=== PATIENT | male | born 1970 | race Caucasian/White ===

== ENCOUNTER 2020-04-14 11:00 | Outpatient (CLI) | payer OTHER, SELFPAY ==
[2020-04-14 11:13] LABS: Basophils Absolute Auto 0.04 K/mm3 (0.00-0.10); Basophils Percent Auto 0.4 % (0.0-1.0); Eosinophils Absolute Auto 0.18 K/mm3 (0.02-0.50); Eosinophils Percent Auto 1.7 % (1.0-6.0); Hematocrit 45.6 % (40.0-54.0); Hemoglobin 14.4 g/dL (14.0-18.0); Immature Granulocyte Absolute 0.04 K/mm3 (0.00-0.00); Immature Granulocyte Percent A 0.4 % (0.0-0.0); Lymphocytes Absolute Auto 1.91 K/mm3 (1.10-4.50); Lymphocytes Percent Auto 18.3 % (18.0-42.0); Mean Corpuscular HGB Conc 31.6 g/dL (32.0-36.0); Mean Corpuscular Hemoglobin 26.6 pg (27.0-31.0); Mean Corpuscular Volume 84.1 fL (78.0-102.0); Mean Platelet Volume 9.3 fl (8.7-11.0); Monocytes Absolute Auto 0.97 K/mm3 (0.10-0.90); Monocytes Percent Auto 9.3 % (2.0-11.0); Neutrophils Absolute Auto 7.3 K/mm3 (1.7-7.2); Neutrophils Percent Auto 69.9 % (50.0-70.0); Platelet Count Result 378 K/mm3 (150-420); Red Blood Count 5.42 M/mm3 (4.70-6.10); Red Cell Distribution Width 13.7 % (11.6-14.4); White Blood Count 10.5 K/mm3 (4.8-10.8)
[2020-04-14 12:28] LABS: Alanine Aminotransferase 8 U/L (16-63); Albumin Level 3.5 g/dL (3.4-5.0); Alkaline Phosphatase 100 U/L (46-116); Anion Gap 9 mmol/L (8-16); Aspartate Amino Transferase 19 U/L (15-37); Bilirubin,Total 0.6 mg/dL (0.00-1.00); Blood Urea Nitrogen 17 mg/dL (7-18); Calcium 9.2 mg/dL (8.5-10.1); Carbon Dioxide 28 mmol/L (21-32); Chloride 101 mmol/L (98-108); Estimated Glomerular Filt Rate 57; Free T4 Free Thyroxine 1.21 ng/dL (0.76-1.46); Glucose 100 mg/dL (70-99); Osmolality Calculated 287 mOsm/kg (285-295); Potassium 4.4 mmol/L (3.5-5.1); Sodium 138 mmol/L (136-145); Total Protein 7.8 g/dL (6.4-8.2); Vitamin B12 315 pg/mL (193-986)
[2020-04-14 12:29] LABS: Folic Acid > 20.0 ng/mL (8.6->20)
[2020-04-17 20:13] LABS: Vitamin D 25 Hydroxy 39 ng/mL (30-100)
== END 2020-04-14 11:01 | disposition home or self-care (01) ==
LOC: CHSLAB 11:01
PROVIDERS: PCP Nurse Practitioner Family; Visit Provider Psychiatry & Neurology Neurology
DX: R25.1 Tremor, unspecified (principal)
CPT/HCPCS: 36415; 80053; 82306; 82607; 82746; 84439; 85025; 86038

== ENCOUNTER 2020-11-27 10:55 | Outpatient (CLI) | payer OTHER, SELFPAY ==
--- NOTE | 2020-11-28 10:34 | WPDNEUROLOGY ---
Neurology EEG Report General Information Date of Study: 11/27/20 TEST eeg DIAGNOSIS memory loss CONDITION OF RECORDING awake drowsy and sleep EEG NUMBER [id number] CLINICAL HISTORY patient reported his family says he is having memory issues for about a year or so. Patient has been diagnosed with Parkinson's disease as well. EEG DESCRIPTION basic resting occipital frequency consists of large amount of well-organized low to medium voltage 9 to 11 hertz per second alpha admixed with low-voltage 15 to 18 hertz per second beta. During drowsiness low-voltage beta activity seen diffusely. Bilateral symmetrical sleep activity seen during sleep. Non paroxysmal. Nonfocal. Nonlateralizing. IMPRESSION Normal record
== END 2020-11-27 10:56 | disposition home or self-care (01) ==
PROVIDERS: PCP Nurse Practitioner Family; Visit Provider Psychiatry & Neurology Neurology
DX: R41.3 Other amnesia (principal)
CPT/HCPCS: 95816

== ENCOUNTER → 2020-11-27 12:34 | Outpatient (CLI) | payer OTHER, SELFPAY ==
--- NOTE | ~2020-11-27 | MR_ITS ---
EXAMINATION: MR brain/brain stem wo con DATE: 11/27/2020 13:13 INDICATION: Memory loss. TECHNIQUE: Magnetic resonance imaging (MRI) of the brain and brainstem was performed without intraven ous contrast. Sequences included sagittal and axial T1-weighted FSE, axial diffusion-weighted FS EPI, axial T2*-weighted GRE, axial T2-weighted FLAIR Propeller, and axial T2-weighted Propeller. Apparent diffusion coefficient (ADC) maps were created. COMPARISON: None. FINDINGS: In the right frontal lobe, there is a focal area of cortical thickening and surface lobulat ion, consistent with polymicrogyria. There is a second smaller area of polymicrogyria in left frontal lobe. There is a third area of polymicrogyria in left parietal occipital region. There is no acute i schemic infarct or intracranial hemorrhage. The ventricles are normal in size. The orbits are normal. There is mild mucosal thickening in the ethmoid sinuses. The mastoid air cells are normal. IMPRESSION: 1. 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 Reviewed, dictated and finalized at location A.
== END ==
PROVIDERS: Visit Provider Psychiatry & Neurology Neurology
DX: R41.3 Other amnesia (principal)
CPT/HCPCS: 70551

== ENCOUNTER 2022-01-03 08:23 | Outpatient (CLI) | payer OTHER, SELFPAY ==
[2022-01-03 08:33] LABS: Basophils Absolute Auto 0.06 K/mm3 (0.00-0.10); Basophils Percent Auto 0.6 % (0.0-1.0); Eosinophils Absolute Auto 0.22 K/mm3 (0.02-0.50); Eosinophils Percent Auto 2.1 % (1.0-6.0); Hematocrit 42.2 % (40.0-54.0); Hemoglobin 12.9 g/dL (14.0-18.0); Immature Granulocyte Absolute 0.05 K/mm3 (0.00-0.00); Immature Granulocyte Percent A 0.5 % (0.0-0.0); Lymphocytes Absolute Auto 1.93 K/mm3 (1.10-4.50); Lymphocytes Percent Auto 18.8 % (18.0-42.0); Mean Corpuscular HGB Conc 30.6 g/dL (32.0-36.0); Mean Corpuscular Volume 85.1 fL (78.0-102.0); Mean Platelet Volume 9.1 fl (8.7-11.0); Monocytes Absolute Auto 0.96 K/mm3 (0.10-0.90); Monocytes Percent Auto 9.4 % (2.0-11.0); Neutrophils Percent Auto 68.6 % (50.0-70.0); Platelet Count Result 409 K/mm3 (150-420); Red Blood Count 4.96 M/mm3 (4.70-6.10); Red Cell Distribution Width 14.1 % (11.6-14.4); White Blood Count 10.3 K/mm3 (4.8-10.8)
[2022-01-03 09:22] LABS: Alanine Aminotransferase 16 U/L (16-63); Albumin Level 3.1 g/dL (3.4-5.0); Alkaline Phosphatase 111 U/L (46-116); Anion Gap 7 mmol/L (8-16); Aspartate Amino Transferase 15 U/L (15-37); Bilirubin,Total 0.3 mg/dL (0.00-1.00); Blood Urea Nitrogen 19 mg/dL (7-18); Calcium 9.1 mg/dL (8.5-10.1); Carbon Dioxide 29 mmol/L (21-32); Chloride 101 mmol/L (98-108); Estimated Glomerular Filt Rate > 60; Free T4 Free Thyroxine 1.03 ng/dL (0.76-1.46); Glucose 107 mg/dL (70-99); Osmolality Calculated 286 mOsm/kg (285-295); Potassium 4.3 mmol/L (3.5-5.1); Sodium 137 mmol/L (136-145); Total Protein 7.8 g/dL (6.4-8.2); Vitamin B12 388 pg/mL (193-986)
[2022-01-06 07:42] LABS: Red Blood Cell Folate 721 ng/mL RBC (>280)
== END 2022-01-03 08:24 | disposition home or self-care (01) ==
LOC: CHSLAB 08:25
PROVIDERS: PCP Family Medicine; Visit Provider Psychiatry & Neurology Neurology
DX: G20 Parkinson's disease (principal)
CPT/HCPCS: 36415; 80053; 82607; 82747; 84439; 85025

== ENCOUNTER 2022-02-12 10:18 | Outpatient (CLI) | payer OTHER, SELFPAY ==
--- NOTE | 2022-02-12 11:15 | NEURO_ITS ---
Impression: # Complains of muscle spasms and cramps. # Subtle right Carpal Tunnel Syndrome. # Right ulnar neuropathy across the elbow. # Needle/EMG exam revealed no fib, myotonia or fasciculation but tremulous with decreased motor unit potentials. Nerve Conduction Studies Anti Sensory Summary Table Stim Site NR Peak (ms) P-T Amp (?V) Site1 Site2 Delta-P (ms) Dist (cm) Armando (m/s) Left Median Anti Sensory (2-3nd Digit) Wrist 3.6 66.7 Wrist 2-3nd Digit 3.6 14.0 39 Wrist 3.6 42.5 Wrist 2-3nd Digit 3.6 14.0 39 Right Median Anti Sensory (2-3nd Digit) Wrist 3.8 22.5 Wrist 2-3nd Digit 3.8 14.0 37 Wrist 3.5 17.0 Wrist 2-3nd Digit 3.8 14.0 37 Left Radial Anti Sensory (Base 1st Digit) Wrist 2.5 6.6 Wrist Base 1st Digit 2.5 0.0 Right Radial Anti Sensory (Base 1st Digit) Wrist 2.8 11.8 Wrist Base 1st Digit 2.8 0.0 Left Sup Fibular Anti Sensory (Ant Lat Mall) 14 cm 3.9 9.8 14 cm Ant Lat Mall 3.9 16.0 41 Right Sup Fibular Anti Sensory (Ant Lat Mall) 14 cm 3.4 10.3 14 cm Ant Lat Mall 3.4 16.0 47 Left Sural Anti Sensory (Lat Mall) Calf 3.7 9.3 Calf Lat Mall 3.7 16.0 43 Right Sural Anti Sensory (Lat Mall) Calf 3.4 41.6 Calf Lat Mall 3.4 16.0 47 Left Ulnar Anti Sensory (5th Digit) Wrist 3.6 47.7 Wrist 5th Digit 3.6 14.0 39 Right Ulnar Anti Sensory (5th Digit) Wrist 2.9 36.9 Wrist 5th Digit 2.9 14.0 48 Motor Summary Table Stim Site NR Onset (ms) O-P Amp (mV) Site1 Site2 Delta-0 (ms) Dist (cm) Armando (m/s) Left Median Motor (Abd Poll Brev) Wrist 3.9 4.6 Elbow Wrist 5.5 30.0 55 Elbow 9.4 4.2 Right Median Motor (Abd Poll Brev) Wrist 4.2 3.8 Elbow Wrist 5.0 28.0 56 Elbow 9.2 3.9 Left Peroneal Motor (Vastus Med) Ankle 4.1 2.2 Popit Ankle 9.3 42.0 45 Popit 13.4 1.9 Right Peroneal Motor (Vastus Med) Ankle 4.5 2.3 Popit Ankle 8.2 36.0 44 Popit 12.7 1.8 Left Tibial Motor (Abd Iniguez Brev) Ankle 5.2 1.7 Knee Ankle 9.7 43.0 44 Knee 14.9 0.8 Right Tibial Motor (Abd Iniguez Brev) Ankle 5.2 1.6 Knee Ankle 9.6 42.0 44 Knee 14.8 0.4 Left Ulnar Motor (Abd Dig Minimi) Wrist 2.8 5.6 A Elbow Wrist 5.4 29.0 54 A Elbow 8.2 3.7 Right Ulnar Motor (Abd Dig Minimi) Wrist 3.0 8.5 A Elbow Wrist 6.0 27.0 45 A Elbow 9.0 7.2 B Elbow Wrist 3.6 20.0 56 B Elbow 6.6 8.1 F Wave Studies NR F-Lat (ms) L-R F-Lat (ms) Left Median (Mrkrs) (Abd Poll Brev) 31.16 0.25 Right Median (Mrkrs) (Abd Poll Brev) 30.90 0.25 Left Peroneal (Mrkrs) (EDB) 59.29 0.76 Right Peroneal (Mrkrs) (EDB) 58.53 0.76 Left Tibial (Mrkrs) (Abd Hallucis) 59.79 0.15 Right Tibial (Mrkrs) (Abd Hallucis) 59.94 0.15 Left Ulnar (Mrkrs) (Abd Dig Min) 30.75 0.90 Right Ulnar (Mrkrs) (Abd Dig Min) 29.85 0.90 EMG Side Muscle Nerve Root Ins Act Fibs Amp Dur Recrt Comment Right 1stDorInt Ulnar C8-T1 Nml Nml Nml Nml Reduced Right Ext Indicis Radial (Post Int) C7-8 Nml Nml Nml Nml Reduced Right Ext Digitorum Radial (Post Int) C7-8 Nml Nml Nml Nml Reduced Right BrachioRad Radial C5-6 Nml Nml Nml Nml Reduced Right PronatorTeres Median C6-7 Nml Nml Nml Nml Reduced Right Abd Poll Brev
== END 2022-02-12 10:19 | disposition home or self-care (01) ==
PROVIDERS: PCP Family Medicine; Visit Provider Psychiatry & Neurology Neurology
DX: R25.2 Cramp and spasm (principal); G56.01 Carpal tunnel syndrome, right upper limb; G56.21 Lesion of ulnar nerve, right upper limb
CPT/HCPCS: 95886; 95913

== ENCOUNTER 2022-10-25 09:13 | Outpatient (CLI) | payer OTHER, SELFPAY ==
--- NOTE | 2022-10-25 09:15 | ECG_ITS ---
Measurements Intervals [place] Rate: 71 P: 56 AK: 162 QRS: 55 QRSD: 91 T: 40 QT: 378 QTc: 411 Interpretive Statements SINUS RHYTHM WITHIN NORMAL LIMITS NO PREVIOUS ECG AVAILABLE FOR COMPARISON Electronically Signed On 10-25-2022 15:45:51 [employer] RO[employer] by Mannie Rolon M.D.
[2022-10-25 09:37] LABS: Basophils Absolute Auto 0.06 K/mm3 (0.00-0.10); Basophils Percent Auto 0.6 % (0.0-1.0); Eosinophils Absolute Auto 0.19 K/mm3 (0.02-0.50); Hemoglobin 13.1 g/dL (14.0-18.0); Immature Granulocyte Absolute 0.05 K/mm3 (0.00-0.00); Immature Granulocyte Percent A 0.5 % (0.0-0.0); Lymphocytes Percent Auto 20.2 % (18.0-42.0); Mean Corpuscular Hemoglobin 27.2 pg (27.0-31.0); Mean Corpuscular Volume 85.2 fL (78.0-102.0); Mean Platelet Volume 9.2 fl (8.7-11.0); Monocytes Absolute Auto 1.04 K/mm3 (0.10-0.90); Monocytes Percent Auto 11.1 % (2.0-11.0); Neutrophils Absolute Auto 6.2 K/mm3 (1.7-7.2); Neutrophils Percent Auto 65.6 % (50.0-70.0); Platelet Count Result 404 K/mm3 (150-420); Red Blood Count 4.81 M/mm3 (4.70-6.10); Red Cell Distribution Width 13.2 % (11.6-14.4); White Blood Count 9.4 K/mm3 (4.8-10.8)
[2022-10-25 10:20] LABS: Alanine Aminotransferase 8 U/L (16-63); Albumin Level 3.2 g/dL (3.4-5.0); Alkaline Phosphatase 86 U/L (46-116); Anion Gap 5 mmol/L (8-16); Aspartate Amino Transferase 16 U/L (15-37); Bilirubin,Total 0.3 mg/dL (0.00-1.00); Blood Urea Nitrogen 17 mg/dL (7-18); Calcium 9.1 mg/dL (8.5-10.1); Carbon Dioxide 31 mmol/L (21-32); Chloride 102 mmol/L (98-108); Cholesterol 138 mg/dL (0-200); Estimated Glomerular Filt Rate 59; Glucose 100 mg/dL (70-99); HDL Direct 56 mg/dL (40-60); LDL Cholesterol Calculated 76 mg/dL (<130); Osmolality Calculated 287 mOsm/kg (285-295); Sodium 138 mmol/L (136-145); Total Protein 7.6 g/dL (6.4-8.2); Triglycerides 29 mg/dL (0-150)
[2022-10-25 10:22] LABS: Troponin I 7.8 ng/L (0.00-60.4)
== END 2022-10-25 09:14 | disposition home or self-care (01) ==
PROVIDERS: PCP Nurse Practitioner Family; Visit Provider Nurse Practitioner Family
DX: I10 Essential (primary) hypertension (principal)
CPT/HCPCS: 36415; 80053; 80061; 84484; 85025; 93005

== ENCOUNTER 2022-10-31 09:19 | Outpatient (CLI) | payer OTHER, SELFPAY ==
--- NOTE | ~2022-10-31 | MR_ITS ---
EXAMINATION: MR brain/brain stem wo/w con DATE: 10/31/2022 10:24 INDICATION: Stroke. TECHNIQUE: Magnetic resonance imaging (MRI) of the brain and brainstem was performed without and with 18 mL MultiHance intravenous contrast. COMPARISON: Brain MRI 11/27/2020 FINDINGS: Again seen are 3 areas of cortical thickening involving the frontal lobes and left parietal lobe, consistent with polymicrogyria. There is no intracranial hemorrhage, acute infarction, or abno rmal intracranial mass lesion. The ventricles are normal in size. There is mild mucosal thickening in the ethmoid sinuses. The mastoid air cells are normal. The orbits are normal. IMPRESSION: 1. Multiple areas of polymicrogyria again seen in the brain. Reviewed, dictated and finalized at location A. 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
== END 2022-10-31 09:20 | disposition home or self-care (01) ==
LOC: CHSIMG 09:20
PROVIDERS: PCP Nurse Practitioner Family; Visit Provider Nurse Practitioner Family
DX: I10 Essential (primary) hypertension (principal); Q04.3 Other reduction deformities of brain
CPT/HCPCS: 70553; A9577

== ENCOUNTER 2023-05-06 13:49 | Outpatient (CLI) | payer OTHER, SELFPAY ==
--- NOTE | ~2023-05-06 | US_ITS ---
EXAMINATION: US soft tissue groin RT DATE: 05/06/2023 14:20 INDICATION: Right lower quadrant abdominal pain. TECHNIQUE: Multiple grayscale and Doppler ultrasound images of the right groin were obtained. COMPARISON: None FINDINGS: There is a right inguinal hernia containing bowel. IMPRESSION: 1. Right inguinal hernia containing bowel. Reviewed, dictated and finalized at location A.
== END 2023-05-06 13:50 | disposition home or self-care (01) ==
PROVIDERS: PCP Nurse Practitioner Family; Visit Provider Nurse Practitioner Family
DX: K40.90 Unilateral inguinal hernia, without obstruction or gangrene, not specified as recurrent (principal); R29.898 Other symptoms and signs involving the musculoskeletal system
CPT/HCPCS: 76882

== ENCOUNTER 2023-07-02 01:28 | Day surgery (SDC) | payer OTHER, SELFPAY ==
[2023-06-25 14:53] VITALS: BMI 27.6
--- NOTE | 2023-06-25 14:59 | PC.NURSE ---
Report to the Outpatient Waiting Room, entrance under the green pavilion located off [address], at time 0930 on date 07/02/23. Planned Procedure Time: 1130. Time changes happen often and if your time is changed the preop area will call you the afternoon before. - You and your visitor will be asked to self-screen and do not enter if you have any COVID symptoms. - A mask is optional within the hospital at this time. Patients may have clear liquids (water, carbonated beverages, clear teas, apple juice) until 3 hours prior to surgery with a maximum of 20 ounces. - No food from midnight until time of surgery Take the following medications with a SIP of water the morning of surgery: CARBIDOPA-LEVODOPA, CITALOPRAM, METOPROLOL DO NOT STOP ANY OF YOUR OTHER PRESCRIPTION MEDICATIONS PRIOR TO SURGERY ?EXCEPT THE FOLLOWING Medications to discontinue per physician: VITAMINS/SUPPLEMENTS Date to take last dose: 06/28/23 Please no make-up, nail arabic, hairspray, perfume, deodorant, or body powder the day of surgery. No jewelry (including any body piercings) or valuables the day of surgery, leave them at home. Please take a shower or bath the night before, or the morning of, surgery with an antibacterial soap. Wear comfortable, loose fitting clothing. - Jewelry must be removed prior to entering the operating room. Rings and piercings that are not removed may be cut off. - The hospital will not accept responsibility for valuables. - Please leave all valuables, including medications, at home the day of surgery. If you are going home after surgery, a licensed hearse driver must drive you home. - NO public transportation without another adult if you receive anesthesia. - We recommend that an adult stay with you for 24 hours following discharge. - We also recommend that you do not drive, make important decision, drink alcoholic beverages, or take any drugs that were not prescribed by your health care provider for at least 24 hours after your discharge time. Follow any additional instructions given to you from your surgeon. If you or anyone in your household have experienced Covid symptoms in the past week, please notify your surgeon or the nurse liaison at the phone number below for possible testing. Telephone instructions given to PT & SPOUSE and asked if any additional questions and then verbalized understanding. Patient advised to call surgeon office or pre surgery nurse liaison [phone] if any additional questions.
[2023-07-02] VITALS (21 sets, daily range): BP systolic 96–130; BP diastolic 55–96; PULSE 52–86; RESP 12–20; TEMP 36.4–36.9; O2SAT 95–100
--- NOTE | 2023-07-02 10:43 | PM.IMHP ---
H&P: HPI History of Present Illness Date/Time: 07/02/23 10:43 Chief Complaint: Right inguinal hernia Narrative: This is a 53-year-old man who presents for laparoscopic right inguinal hernia repair. He reports no changes since last seen in the office. Review of Systems Review of Systems: All systems reviewed & are unremarkable except as noted in HPI and below Constitutional: Constitutional: Denies chills, Denies fever(s), Denies headache(s) and Denies weight loss Eyes: Eyes: Denies change in vision ENT: Denies dizziness, Denies headache(s), Denies neck mass and Denies throat swelling Cardiovascular: Cardiovascular: Denies chest pain, Denies lightheadedness and Denies dyspnea Respiratory: Respiratory: Denies cough, Denies dyspnea and Denies wheezing Gastrointestinal: Gastrointestinal: Denies abdominal pain, Denies change in bowel habits, Denies nausea and Denies vomiting Genitourinary: Genitourinary: Denies hematuria and Denies dysuria Musculoskeletal: Musculoskeletal: Reports as per HPI Integumentary/Breasts: Skin/Breast: Reports as per HPI Neurologic: Denies dizziness and Denies headache(s) Allergic/Immunologic: Allergic/Immunologic: Denies throat swelling and Denies wheezing [facility] Past Medical History Medical History GI bleed Hypertension Parkinson's Disease Family History Family History Father Family history of type 2 diabetes mellitus Other Inguinal hernia Social History Social History Smoking status: Never smoker Alcohol intake: current Alcohol use details: RARE Substance use: never Substance use type: does not use Living arrangements: with family Occupation/Education: occupation 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 Spiritual care concerns: No Meds Home Medications and Allergies Home Medications Medication Instructions Recorded Confirmed Type magnesium oxide 400 mg PO DAILY 07/01/19 06/25/23 History multivitamin 1 tablet PO DAILY 07/01/19 06/25/23 History diclofenac sodium 50 mg 50 mg PO TID PRN pain #60 tabs 09/20/20 06/25/23 Rx tablet,delayed release lisinopril 20 mg tablet See Rx Instructions .Route 04/02/23 06/25/23 Rx .COMPLEX #90 tabs metoprolol succinate 50 mg See Rx Instructions .Route 04/18/23 06/25/23 Rx tablet,extended release 24 hr .COMPLEX #90 tabs carbidopa 25 mg-levodopa 250 mg See Rx Instructions .Route 04/21/23 06/25/23 Rx tablet .COMPLEX #270 tabs citalopram 10 mg tablet See Rx Instructions .Route 04/21/23 06/25/23 Rx .COMPLEX #90 tabs diphenhydramine HCl 25 mg tablet 25 mg PO BID PRN Allergy Symptoms 06/25/23 06/25/23 History Allergies Allergy/AdvReac Type Severity Reaction Status Date / Time No Known Allergies Allergy Verified 06/25/23 14:50 Exam Const: General: no acute distress and alert Orientation/consciousness: patient oriented x3 HENMT: Head: normocephalic and atraumatic Ears: hearing grossly normal bilaterally Face/Nose/Sinus: Normal nares present Mouth: Yes Normal oral and palatal mucosa present Eyes: Periorbital: periorbital findings normal Sclera: sclerae normal EOM: EOMs intact bilaterally Neck: Neck: normal visual inspection, no lymphadenopathy and trachea midline Chest: Chest palpation & inspection: normal inspection of the chest Resp: Effort & Inspection: normal respiratory effort Auscultation: clear to auscultation bilaterally Cardio: Jugular venous distension: no JVD Rate: regular rate Rhythm: regular rhythm Heart sounds: S1 normal heart sound present and S2 normal heart sound present Peripheral pulses: Peripheral pulses 2+ throughout GI: Inspection: normal to inspection GI Palp: Yes Soft to palpation, No Tenderness to palpation present (GI), No Guarding due to palpation present (GI) and No Rebound te
--- NOTE | 2023-07-02 10:45 | WPDHPUPDATE1 ---
History and Physical Update Update Date/Time: 07/02/23 10:45 History and Physical has been reviewed, including an updated exam of the patient. There are NO changes in the patient's condition. Risks, benefits, and alternatives have been discussed and questions answered. Patient agrees to proceed with procedure.
--- NOTE | 2023-07-02 10:47 | P.PNAN_ITS ---
Anes - Initial Pre Proc Eval Procedure: Operation Date: 07/02/23 11:30 Proposed Procedures p Laparoscopic Right Inguinal Hernia Repair with Mesh, Davinci Assisted - Shun Mora DO Date/Time: 07/02/23 10:47 Surgeon: Shun Mora DO Pre Op Diagnosis: right inguinal hernia Patient Data Age: 53 Gender: M Height: 1.79 m Weight: 88.5 kg Allergies Allergy/AdvReac Type Severity Reaction Status Date / Time No Known Allergies Allergy Verified 06/25/23 14:50 Home Medications Medication Instructions Recorded Confirmed Type magnesium oxide 400 mg PO DAILY 07/01/19 06/25/23 History multivitamin 1 tablet PO DAILY 07/01/19 06/25/23 History diclofenac sodium 50 mg 50 mg PO TID PRN pain #60 tabs 09/20/20 06/25/23 Rx tablet,delayed release lisinopril 20 mg tablet See Rx Instructions .Route 04/02/23 06/25/23 Rx .COMPLEX #90 tabs metoprolol succinate 50 mg See Rx Instructions .Route 04/18/23 06/25/23 Rx tablet,extended release 24 hr .COMPLEX #90 tabs carbidopa 25 mg-levodopa 250 mg See Rx Instructions .Route 04/21/23 06/25/23 Rx tablet .COMPLEX #270 tabs citalopram 10 mg tablet See Rx Instructions .Route 04/21/23 06/25/23 Rx .COMPLEX #90 tabs diphenhydramine HCl 25 mg tablet 25 mg PO BID PRN Allergy Symptoms 06/25/23 06/25/23 History Patient hx anesthesia problems: none Family hx anesthesia problems: none Results Review: All pre-operative results and documents have been reviewed as part of the pre- operative evaluation. 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 Informed Consent: The patient's anesthetic plan and its attendant risks and benefits were discussed with the patient/family/POA. Questions were solicited and answers provided to the satisfaction of the patient/family/POA.
[2023-07-02] MEDS: KETOROLAC 15 MG/ML VIAL (*BKC) IV PUSH (10:55)
[2023-07-02] MEDS: ACETAMINOPHEN 500 MG TABLET 1000 MG PO (10:55)
[2023-07-02] MEDS: LACTATED RINGERS 1,000 ML 30 ML IV CONT ×3 (10:55→18:10)
[2023-07-02] MEDS: ceFAZolin 2 GM/D5W 50 ML 2 GM/50 ML BAG IVPB (11:04)
[2023-07-02] MEDS: BUPIVACAINE/EPINEPHRINE 0.5% 50 ML VIAL 30 ML INFILTRATE (11:33)
--- NOTE | 2023-07-02 12:23 | W.PM.PROC2 ---
Procedure Note - Detailed Date of Procedure 07/02/23 Pre-op Diagnosis right inguinal hernia Post-op Diagnosis Other (Bilateral indirect inguinal hernias) Procedure Performed Laparoscopic bilateral inguinal hernia repair with mesh, da Etta assisted Surgeon Shun Mora, Anesthesia General and Local (0.5% bupivacaine with epinephrine) Indications This is a 53-year-old man who presented with a right groin bulge that he noticed about 3 months ago. Over the past month it has become increasingly painful and larger. It does reduce when he lays down. An ultrasound was performed and this showed evidence of a reducible right inguinal hernia. The patient was also experiencing some left groin pain but the hernia was not definitely identifiable. Discussions were made with the patient about treatment options and decision was made to proceed with robotic assisted laparoscopic right inguinal hernia repair with mesh. Findings Upon entering the abdominal cavity laparoscopically, the patient was found to have a moderate-sized indirect right inguinal hernia as well as a small indirect left inguinal hernia. Decision was made to proceed with bilateral inguinal hernia repair. A robotic transabdominal preperitoneal approach was utilized. Once a wide enough preperitoneal plane was created on each side I then placed a large 3DMax mid mesh overlying each myopectineal orifice. No specimens were obtained for pathology. Description of Procedure Procedure as well as risks, benefits, and alternatives were discussed with the patient. Written consent was obtained and placed in chart prior to procedure. Patient was brought back to surgical suite. He was placed supine on operating table. Time-out was done to confirm patient and procedure. He was then intubated by Anesthesia Department. His abdomen was prepped and draped in sterile fashion using chlorhexidine prep. 0.5% bupivacaine with epinephrine was infiltrated at each location for incision. An 8 mm incision was made in the left lateral abdomen, and a 5 mm Optiview trocar was advanced through the abdominal layers under direct visualization. Once inside the abdominal cavity, carbon dioxide insufflation was used to create a pneumoperitoneum. A camera was inserted and the abdominal cavity was inspected. The patient was placed in slight Trendelenburg position. An 8 millimeter incision was made on the right lateral abdomen and an 8 millimeter trocar was inserted under direct visualization. Another 8 millimeter incision was made just superior to the umbilicus and an 8 millimeter trocar was inserted under direct visualization. The 5 mm port was then removed and this was replaced with another 8 mm robotic port. The robotic arms were brought up to the patient's bedside and secured to the ports. The camera and instruments were inserted. I then moved over to the robotic console and took control of the camera and instruments. After careful inspection of the abdominal cavity, I began scoring the peritoneum along the right lower quadrant using scissors with electrocautery. The preperitoneal plane was entered and this was carefully dissected caudally along the inferior epigastric vessels. Careful dissection with scissors with electrocautery and blunt dissection was used to continue this dissection. I dissected far enough laterally to allow for mesh placement, and also dissected medially to identify the pubic arch and Sebastian's ligament. The hernia sac was identified and carefully dissected posteriorly. The cord contents were also identified and the peritoneum was carefully dissected far enough posteriorly to allow for mesh placement. Once an adequate pocket was created, I then placed the mesh within the preperitoneal pocket and carefully unfolded it. The mesh was centered on the hernia defect with adequate overlap circumferentially. The inferior edge of the mesh was inspected to ensure that it was far enough away from the peritoneal
[2023-07-02] MEDS: fentaNYL CITRATE INJ (*CRX) 100 MCG/2 ML VIAL 25 MCG IV PUSH ×2 (13:08→13:10)
--- NOTE | 2023-07-02 18:23 | SUR.PHASEII ---
181 - pt unable to void after multip;e attempts. Taking fluids well. at 1730 Dr Mora notified. bladder scanner obtained and used. only showed about 130 mls present in bladder. bag of LR 1000 ml hung. at [address] Mora notified of results and actions taken.
[2023-07-02] MEDS: oxyCODONE HCL (*CRX) 5 MG TAB IR PO (18:52)
--- NOTE | 2023-07-02 19:42 | SUR.PHASEII ---
1930 - ambulated to bathroom, dribbles of urine only. no steady stream.
--- NOTE | 2023-07-02 20:10 | SUR.PHASEII ---
1950 BLADDER SCAN SHOWING 600ML. PATIENT AMBULATED TO RESTROOM & URINATED LARGE AMT.
== END 2023-07-02 20:15 | disposition home or self-care (01) ==
PROVIDERS: PCP Nurse Practitioner Family; Visit Provider Surgery
PROC: 8E0Y4CZ Robotic Assisted Procedure of Lower Extremity, Percutaneous Endoscopic Approach (ICD-10-PCS; CPT 49650; principal; 2023-07-02 11:30)
DX: K40.90 Unilateral inguinal hernia, without obstruction or gangrene, not specified as recurrent (principal); I10 Essential (primary) hypertension; G20.A1 Parkinson's disease without dyskinesia, without mention of fluctuations
CPT/HCPCS: 49650; S2900; 36415; 86850; 86900; 86901; A9270; C1781; J0690; J1100; J1885; J2250; J2270; J2405; J2704; J2710; J3010; J7120

== ENCOUNTER 2024-04-14 20:06 | Outpatient (CLI) | payer OTHER, SELFPAY ==
--- NOTE | 2024-05-11 09:49 | WPDSLEEPSTUD ---
Sleep Study Date of Study: 04/14/24 Ordering Provider: Magy Fulton MD Interpreting Physician: Deysi Mims DO Sleep Study Type: Polysomnogram Height: 1.78 m Weight: 89.981 kg Body Mass Index: 28.4 Neck Circumference (inches): 15.5 [place]: 7 Reason for Sleep Study Difficulty maintaining sleep Sleep History The patient is a 54-year-old male with Parkinson's disease that had a sleep study ordered by his couples therapist for evaluation of REM behavioral disorder. The patient denies awakening from sleep short of breath. He denies awakening at night with heartburn, belching or cough. He occasionally snores but is rarely loudly enough that others complain. He occasionally has trouble sleeping when he has a cold. He denies waking up gasping for air throughout the night. He denies having breathing problems at night observed by himself or others. He denies sweating excessively at night. He denies having heart palpitations or irregular heartbeats during the night. He occasionally falls asleep during the day but never while driving. He denies sleep paralysis and cataplexy. He occasionally has trouble at school or work due to sleepiness. He occasionally experiences vivid dreamlike scenes upon awakening or falling asleep. He denies feeling afraid of going to sleep. He occasionally has nightmares and occasionally remembers his dreams. He occasionally has thoughts racing through his mind. He rarely feels sad or depressed. He frequently has anxiety. He occasionally has muscular tension. He occasionally notices parts of his body jerk. He rarely kicks during the night. He rarely has crawling and aching feelings in his legs but occasionally has leg pain during the night. He denies grinding his teeth during sleep and denies awakening with morning jaw pain. He denies being bothered by pain during the day and denies being awakened by pain during the night. He occasionally wakes up feeling stiff in the morning. He occasionally wakes up with sore or achy muscles. He rarely wakes up with pain in the neck, spine or other joints. He goes to bed between 9:30-10 p.m. on weekdays and between 10:30-11 p.m. on the weekends. It takes him 30-60 minutes to fall asleep. He wakes up 1-2 times throughout the night to urinate and that amount of time it takes for him to fall back asleep is variable. He wakes up between 6:30-7 a.m. on weekdays and between 7-7:30 a.m. on the weekends. He typically gets 6-8 hours of sleep per night. He will stay in bed for 15 minutes after waking up in the morning. He currently lives with his and adult child. He denies consuming any caffeinated beverages within 2 hours of bedtime. He denies engaging in physical exercise before bedtime. He will watch television before falling asleep. He will occasionally take naps in afternoon or the evening and they are refreshing. He denies consuming any caffeinated beverages during the day. He denies tobacco, alcohol and recreational drug use. [facility] Past Medical History Medical History Excessive daytime sleepiness GI bleed Hypertension Insomnia Motor fluctuations related to medication use in Parkinson's disease Obstructive sleep apnea Parkinson's Disease REM behavioral disorder Surgical History Surgical History History of inguinal hernia repair Laparoscopic bilateral inguinal hernia repair with mesh, da Etta assisted on 07/02/23 W Family History Family History Father Family history of type 2 diabetes mellitus Other Inguinal hernia Mother , age 70 Pseudobulbar palsy, ministrokes Pseudobulbar palsy Breast cancer Social History Social History Social History: Caffeine-occasionally Smoking status: Never sm
[2024-05-11 09:50] VITALS: BMI 28.4
== END 2024-04-15 06:57 | disposition home or self-care (01) ==
LOC: CHSCSM 20:07
PROVIDERS: PCP Family Medicine; Visit Provider Internal Medicine Critical Care Medicine
DX: G47.61 Periodic limb movement disorder (principal); R06.83 Snoring; G47.52 REM sleep behavior disorder; G47.19 Other hypersomnia
CPT/HCPCS: 95810

== ENCOUNTER 2024-09-09 07:38 | Outpatient (CLI) | payer OTHER, SELFPAY ==
[2024-09-09 07:59] LABS: Basophils Absolute Auto 0.04 K/mm3 (0.00-0.10); Basophils Percent Auto 0.5 % (0.0-1.0); Eosinophils Absolute Auto 0.25 K/mm3 (0.02-0.50); Eosinophils Percent Auto 3.2 % (1.0-6.0); Hemoglobin 12.5 g/dL (14.0-18.0); Immature Granulocyte Absolute 0.04 K/mm3 (0.00-0.00); Immature Granulocyte Percent A 0.5 % (0.0-0.0); Lymphocytes Absolute Auto 2.01 K/mm3 (1.10-4.50); Lymphocytes Percent Auto 25.5 % (18.0-42.0); Mean Corpuscular HGB Conc 31.3 g/dL (32-36); Mean Corpuscular Hemoglobin 26.1 pg (27.0-31.0); Mean Corpuscular Volume 83.5 fL (78.0-102.0); Mean Platelet Volume 8.5 fl (8.7-11.0); Monocytes Absolute Auto 0.98 K/mm3 (0.10-0.90); Monocytes Percent Auto 12.4 % (2.0-11.0); Neutrophils Absolute Auto 4.56 K/mm3 (1.70-7.20); Neutrophils Percent Auto 57.9 % (50.0-70.0); Platelet Count Result 432 K/mm3 (150-420); Red Blood Count 4.79 M/mm3 (4.70-6.10); Red Cell Distribution Width 13.8 % (11.6-14.4); White Blood Count 7.9 K/mm3 (4.8-10.8)
[2024-09-09 08:42] LABS: Alanine Aminotransferase 8 U/L (16-63); Albumin Level 3.1 g/dL (3.4-5.0); Alkaline Phosphatase 93 U/L (46-116); Anion Gap 6 mmol/L (4-12); Aspartate Amino Transferase 16 U/L (15-37); Bilirubin,Total 0.6 mg/dL (0.00-1.00); Blood Urea Nitrogen 21 mg/dL (7-18); Calcium 8.9 mg/dL (8.5-10.1); Carbon Dioxide 29 mmol/L (21-32); Chloride 101 mmol/L (98-108); Cholesterol 159 mg/dL (0-200); Estimated Glomerular Filt Rate 50; Glucose 100 mg/dL (70-99); HDL Direct 54 mg/dL (40-60); LDL Cholesterol Calculated 96 mg/dL (<130); Osmolality Calculated 285 mOsm/kg (285-295); Potassium 4.5 mmol/L (3.5-5.1); Sodium 136 mmol/L (136-145); Total Protein 7.1 g/dL (6.4-8.2); Triglycerides 44 mg/dL (0-150)
[2024-09-09 08:51] LABS: Thyroid Stimulating Hormone Reflex 2.25 u/IU/mL (0.36-3.74)
[2024-09-09 10:08] LABS: Hemoglobin A1C 5.4 % (<5.7)
[2024-09-09 10:14] LABS: Iron 52 ug/dL (65-175); Percent Iron Saturation 17 % (12-57)
== END 2024-09-09 07:39 | disposition home or self-care (01) ==
LOC: CHSLAB 07:39
PROVIDERS: PCP Nurse Practitioner Family; Visit Provider Nurse Practitioner Family
DX: Z00.00 Encounter for general adult medical examination without abnormal findings (principal); Z78.9 Other specified health status; R79.89 Other specified abnormal findings of blood chemistry
CPT/HCPCS: 36415; 80053; 80061; 83036; 83540; 83550; 83735; 84443; 84630; 85025

== ENCOUNTER 2024-10-11 12:10 | Outpatient (CLI) | payer OTHER, SELFPAY ==
[2024-10-11 12:31] LABS: Hematocrit 39.5 % (40.0-54.0); Hemoglobin 12.3 g/dL (14.0-18.0); Mean Corpuscular HGB Conc 31.1 g/dL (32-36); Mean Corpuscular Hemoglobin 26.1 pg (27.0-31.0); Mean Corpuscular Volume 83.9 fL (78.0-102.0); Mean Platelet Volume 9.2 fl (8.7-11.0); Platelet Count Result 485 K/mm3 (150-420); Red Blood Count 4.71 M/mm3 (4.70-6.10); Red Cell Distribution Width 14.2 % (11.6-14.4); White Blood Count 12.5 K/mm3 (4.8-10.8)
[2024-10-11 13:00] LABS: Alanine Aminotransferase 10 U/L (16-63); Albumin Level 3.2 g/dL (3.4-5.0); Alkaline Phosphatase 89 U/L (46-116); Anion Gap 9 mmol/L (4-12); Aspartate Amino Transferase 22 U/L (15-37); Bilirubin,Total 0.5 mg/dL (0.00-1.00); Blood Urea Nitrogen 19 mg/dL (7-18); Carbon Dioxide 26 mmol/L (21-32); Chloride 102 mmol/L (98-108); Estimated Glomerular Filt Rate 55; Glucose 90 mg/dL (70-99); Osmolality Calculated 286 mOsm/kg (285-295); Potassium 5.1 mmol/L (3.5-5.1); Sodium 137 mmol/L (136-145); Total Protein 7.3 g/dL (6.4-8.2)
== END 2024-10-11 12:11 | disposition home or self-care (01) ==
LOC: CHSLAB 12:11
PROVIDERS: PCP Nurse Practitioner Family; Visit Provider Nurse Practitioner Family
DX: R79.89 Other specified abnormal findings of blood chemistry (principal)
CPT/HCPCS: 36415; 80053; 85027

== ENCOUNTER 2024-12-06 16:04 | Observation (INO) | payer OTHER, SELFPAY ==
[2024-12-06] VITALS (12 sets, daily range): BP systolic 100–115; BP diastolic 61–75; PULSE 87–113; RESP 16–20; TEMP 36.8–38.2; O2SAT 91–97; BMI 26.6
--- NOTE | ~2024-12-06 | CT_ITS ---
CLINICAL INDICATION: Left-sided abdominal pain COMPARISON: None. TECHNIQUE: Multiple contiguous axial images of the abdomen and pelvis were performed following the ad ministration of with 100 mL Omnipaque-350 intravenous contrast The dose-length product (DLP) was 462.20 mGy-cm. Automated exposure control and iterative reconstruction technique were employed. FINDINGS/OBSERVATIONS: Visualized lower thorax: Trace left basilar atelectasis. The remainder of the bilateral lung bases are clear The heart is of normal size, without pericardial effusion. Small hiatal hernia is present. Liver: The liver demonstrates homogeneous enhancement and is enlarged measuring 20 cm in longitudinal dimens ion. Gallbladder and biliary system: The gallbladder is distended, and otherwise unremarkable. Pancreas: The pancreas enhances homogeneously without ductal dilatation. Spleen: The spleen enhances homogeneously and is not enlarged. Kidneys: Focus of fluid attenuation exophytic from the interpolar region of the left kidney measuring 26 mm in greatest dimension, statistically a cyst for which no further follow-up is needed. The remainder of the bilateral kidneys otherwise enhance symmetrically without hydronephrosis or pauly l calculi. Adrenal glands: Unremarkable. Gastrointestinal tract: Asymmetric mural thickening of the descending colon with significant surrounding inflammatory change, findings suggestive of acute diverticulitis for which clinical correlation is needed. No drainable f luid collection is present. No gross perforation is noted. Follow-up to resolution is recommended as a malignancy has a similar appearance. Fecal stasis distending the rectum. Appendix: The air-filled appendix is of normal caliber (axial series, images 141 through 149) Vasculature: Unremarkable. Lymph nodes: No pathologically enlarged or morphologically suspicious lymph nodes within the retroperitoneum or at the root of the mesentery. Pelvic structures: The bladder is decompressed, and otherwise unremarkable. The prostate gland is not enlarged. Body wall and musculoskeletal: Small fat-containing umbilical hernia. No significant degenerative disease within the lower thoracic or lumbosacral spine. IMPRESSION: Findings suggestive of acute diverticulitis of the descending colon, as detailed above. Follow-up to resolution is recommended as a malignancy has a similar appearance. No drainable fluid collection. No gross perforation. Reviewed, dictated and finalized at location A. IMPRESSION: Findings suggestive of acute diverticulitis of the descending colon, as detaile d above. Follow-up to resolution is recommended as a malignancy has a similar appearance . No drainable fluid collection. No gross perforation.
--- NOTE | ~2024-12-06 | US_ITS ---
US renal BI Ordering provider: Ashtyn Razo APRN History: . Worsening ZHEN . Comparison: None. Technique: Ultrasound bilateral kidneys. Findings: RIGHT KIDNEY: Measures 10.5x 4.5x 5.5 cm in length which is normal in size. No renal cysts. No renal mass or visualized echogenic stones. Otherwise, normal echotexture and contour. No hydronephrosis. No rmal renal cortical thickness. LEFT KIDNEY: Measures 10.3x 4.5x 5.6 cm in length which is normal in size. 2.1x 2.1x 2.2 cm cyst is n oted. No renal mass or visualized echogenic stones. Otherwise, normal echotexture and contour. No hyd ronephrosis. Normal renal cortical thickness. BLADDER: Normal. Wall thickness is 0.7 cm. Ureteral jets were not seen bilaterally. IMPRESSION: Left renal cyst. Otherwise, no definite abnormality. Possible cystitis. Reviewed, dictated and finalized at location A.
--- NOTE | 2024-12-06 16:10 | ED_ITS ---
HPI - Abdominal Pain General Chief Complaint: Abdominal Pain Stated Complaint: left side pain in ab Time Seen by Provider: 12/06/24 16:10 Source: patient Mode of arrival: ambulatory Limitations: no limitations History of Present Illness HPI narrative: 54 years old white male came to the ED by private car with his complaining of left lower quadrant pain started 3 days ago vomited once yesterday, loose stool once today. Denies aggravating or relieving factors, denies radiation of pain. Patient denies any fever or chills. History of abdominal hernia repair, diabetes, hypertension, Parkinson. Patient is not on anti-platelet or anticoagulant medication, patient denies smoking or drinking or using drugs. Related Data Home Medications ?Medication ?Instructions ?Recorded ?Confirmed ?Last Taken ?Type magnesium oxide 400 mg PO DAILY 07/01/19 12/06/24 Unknown History multivitamin 1 tablet PO DAILY 07/01/19 12/06/24 Unknown History melatonin 5 mg capsule 5 mg PO QHS 03/22/24 12/06/24 Unknown History Allergies Allergy/AdvReac Type Severity Reaction Status Date / Time No Known Allergies Allergy Verified 12/06/24 16:48 Review of Systems 2 Review of Systems: All systems reviewed & are unremarkable except as noted in HPI and below PMFSH Past Medical History Medical History Motor fluctuations related to medication use in Parkinson's disease Excessive daytime sleepiness Obstructive sleep apnea Insomnia REM behavioral disorder Parkinson's Disease Hypertension GI bleed Surgical History Surgical History History of inguinal hernia repair Laparoscopic bilateral inguinal hernia repair with mesh, [place] assisted on 07/02/23 [facility] Family History Family History Father Family history of type 2 diabetes mellitus Other Inguinal hernia Mother , age 70 Pseudobulbar palsy, ministrokes Pseudobulbar palsy Breast cancer Social History Social History Social History: Caffeine-occasionally Smoking status: Never smoker Alcohol intake: current Alcohol use details: RARE Substance use: never Substance use type: does not use Do You Feel Safe in your Home?: Yes Lack of Transportation: No Lack of Food: Never True Current Housing: I Have Housing Concerned About Future Housing: No Difficulty Paying Gas/Electric Bills: No Difficulty Paying for Meds: No Currently Unemployed: No Education: Bachelor's Degree Difficulty w/ Childcare or Family Care: No Living arrangements: with family Occupation/Education: occupation 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 Musculoskeletal: Normal range of motion, nontender back Neurologic: Alert and oriented ?3, [employer] CLE[employer] is normal as tested, no gross motor deficit Course Vital Signs Vital signs: Vital Signs Temperature 38.2 C H 12/06/24 16:05 Pulse Rate 113 H 12/06/24 16:05 Respiratory Rate 18 12/06/24 16:05 Blood Pressure 115/75 12/06/24 16:05 Pulse Oximetry 97 12/06/24 16:05 Oxygen Delivery Room Air 12/06/24 16:05 Temperature 36.9 C 12/06/24 18:01 Pulse Rate 94 12/06/24 18:01 Respiratory Rate 20 12/06/24 18:01 Blood Pressure 100/68 12/06/24 17:57 Pulse Oximetry 93 12/06/24 18:01 Oxygen Delivery Room Air 12/06/24 17:57 MDM - Abdominal Pain MDM Narrative Medical decision making narrative: patient presents with left lower quadrant pain Vital signs showing heart rate of 113, temperature 38.2? otherwise insignificant Physical examination consistent with a +tenderness left lower quadrant Differential diagnosis include diverticulitis, urinary tract infection, colitis, urinary tract infection Blood workup today includes CBC, CMP, lipase showed WBC 21.1, sodium 130, creatinine 1.5, Urinalysis showed no evidence of infection CT abdomen and pelvis with IV contrast showed ACUTE DIVERTICULITIS PATIENT TO BE ADMITTED TO MEDICAL FLOOR BECAUSE OF HISTORY OF DIABETES, FEVER, ELEVATED WBC, AND DEHYDRATION. ADMIT/OBSERVATION Differential Diagnosis Differential diagnosis: Likely other ( ABOVE) Medical Records Attestation: I reviewed the patient's medical records. Lab Data Attestation: I reviewed the patient's lab results. 12/06/24 16:26 12/06/24 16:26 Labs: Lab Results 12/06/24 12/06/24 Range/Units 16:11 16:26 WBC 21.1 H* (4.8-10.8) K/mm3 RBC 4.76 (4.70-6.10) M/mm3 Hgb 13.0 L (14.0-18.0) g/dL Hct 40.1 (40.0-54.0) % MCV 84.2 (78.0-102.0) fL MCH 27.3 (27.0-31.0) pg MCHC 32.4 (32-36) g/dL RDW 14.6 H (11.6-14.4) % Plt Count 336 (150-420) K/mm3 MPV 9.3 (8.7-11.0) fl Immature Gran % (Auto) Not Reportable Neut % (Auto) Not Reportable Lymph % (Auto) Not Reportable [place] % (Auto) Not Reportable Eos % (Auto) Not Reportable Baso % (Auto) Not Reportable Lymph # (Auto) Not Reportable [place] # (Auto) Not Reportable Eos # (Auto) Not Reportable Baso # (Auto) Not Reportable Abs Immat Gran (auto) Not Reportable Absolute Neuts (auto) Not Reportable Absolute Nucleated RBC Not Reportable Total Counted 100 Neutrophils % (Manual) 80 H (46-73) % Band Neutrophils % 1 (0-6) % Lymphocytes % (Manual) 11 L (18-44) % Monocytes % (Manual) 8 (3-9) % Eosinophils % (Manual) 0 L (1-6) % Basophils % (Manual) 0 (0-1) % Nucleated RBC % Not Reportable Abs Neuts (Manual) 17.09 H (1.3-6.7) K/mm3 Abs Lymphs (Manual) 2.32 (1.1-4.5) K/mm3 Abs Monocytes (Manual) 1.68 H (0.1-0.90) K/mm3 Absolute Eos (Manual) 0.00 L (0.02-0.50) K/mm3 Abs Basophils (Manual) 0.00 (0-0.1) K/mm3 Platelet Estimate Adequate (Adequate) Schistocytes Not Reportable Sodium 130 L (136-145) mmol/L Potassium 4.0 (3.5-5.1) mmol/L Chloride 97 L (98-108) mmol/L Carbon Dioxide 23 (21-32) mmol/L Anion Gap 10 (4-12) mmol/L BUN 18 (7-18) mg/dL Creatinine 1.51 H (0.70-1.30) mg/dL Estim Creat Clear Calc 51 ml/min Estimated GFR 48 L (59 - ) Glucose 112 H (70-99) mg/dL Calculated Osmolality 272 L (285-295) mOsm/kg Calcium 8.7 (8.5-10.1) mg/dL Total Bilirubin 0.7 (0.00-1.00) mg/dL AST 12 L (15-37) U/L ALT 10 L (16-63) U/L Alkaline Phosphatase 92 (46-116) U/L Total Protein 7.8 (6.4-8.2) g/dL Albumin 2.8 L (3.4-5.0) g/dL Lipase 11 L (16-77) U/L Urine Color Dark yellow (Yellow) Urine Appearance Clear (Clear) Urine pH 5.5 (5.0-8.0) Ur Specific [place] 1.020 (1.010-1.020) Urine Protein 2+ H (Negative) Urine Glucose (UA) 3+ H (Negative) Urine Ketones Trace H (Negative) Ur Blood (Man) Trace-intact H (Negative) Urine Nitrate Negative (Negative) Urine Bilirubin 1+ H (Negative) Urine Urobilinogen 0.2 (0.2-1.0) mg/dL Leukocyte Esterase Rfl Negative (Negative) BLANCA/UL Urine RBC 0-2 (0-2) /hpf Urine WBC None seen (0-3) /hpf Ur Squamous Epith Cells Few (Few) /hpf Urine Bacteria 1+ H (None) /hpf Imaging Data Radiologist's impression: ITS Impressions Abdomen/Pelvis CT 12/06/24 17:34 IMPRESSION: Findings suggestive of acute diverticulitis of the descending colon, as detailed above. Follow-up to resolution is recommended as a malignancy has a similar appearance. No drainable fluid collection. No gross perforation. Impressions Abdomen/Pelvis CT 12/06/24 17:34 IMPRESSION: Findings suggestive of acute diverticulitis of the descending colon, as detailed above. Follow-up to resolution is recommended as a malignancy has a similar appearance. No drainable fluid collection. No gross perforation. Critical Care Time Critical Care Time Critical Care Time: No Discharge Plan Discharge Clinical Impression: Acute diverticulitis Patient Disposition: Still a Patient Condition: Stable
[2024-12-06 16:30] LABS: Hematocrit 40.1 % (40.0-54.0); Mean Corpuscular HGB Conc 32.4 g/dL (32-36); Mean Corpuscular Hemoglobin 27.3 pg (27.0-31.0); Mean Corpuscular Volume 84.2 fL (78.0-102.0); Mean Platelet Volume 9.3 fl (8.7-11.0); Platelet Count Result 336 K/mm3 (150-420); Red Blood Count 4.76 M/mm3 (4.70-6.10); Red Cell Distribution Width 14.6 % (11.6-14.4)
[2024-12-06] MEDS: SODIUM CHLORIDE 0.9% IV 1,000 ML 999 ML IV CONT (16:30)
[2024-12-06 16:33] LABS: White Blood Count 21.1 K/mm3 (4.8-10.8)
[2024-12-06] MEDS: KETOROLAC 15 MG/ML VIAL (*BKC) IV PUSH (16:33)
[2024-12-06] MEDS: ACETAMINOPHEN 325 MG TABLET 650 MG PO (16:33)
[2024-12-06] MEDS: MORPHINE SULFATE (*CRX) 4 MG/ML INJ IV PUSH (16:33)
[2024-12-06] MEDS: ONDANSETRON INJ 4 MG/2 ML VIAL IV PUSH ×2 (16:34→20:31)
[2024-12-06 16:42] LABS: Alanine Aminotransferase 10 U/L (16-63); Albumin Level 2.8 g/dL (3.4-5.0); Alkaline Phosphatase 92 U/L (46-116); Anion Gap 10 mmol/L (4-12); Aspartate Amino Transferase 12 U/L (15-37); Bilirubin,Total 0.7 mg/dL (0.00-1.00); Blood Urea Nitrogen 18 mg/dL (7-18); Calcium 8.7 mg/dL (8.5-10.1); Carbon Dioxide 23 mmol/L (21-32); Chloride 97 mmol/L (98-108); Estimated CRCL calculation 51 ml/min; Estimated Glomerular Filt Rate 48; Glucose 112 mg/dL (70-99); Lipase 11 U/L (16-77); Osmolality Calculated 272 mOsm/kg (285-295); Sodium 130 mmol/L (136-145); Total Protein 7.8 g/dL (6.4-8.2)
[2024-12-06 17:04] LABS: Band Neutrophils Percent 1 % (0-6); Neutrophils Absolute Manual 17.09 K/mm3 (1.3-6.7); Neutrophils Percent Manual 80 % (46-73); Total Cells Counted 100
[2024-12-06 17:05] LABS: Basophils Percent Manual 0 % (0-1); Eosinophils Percent Manual 0 % (1-6); Lymphocytes Absolute Manual 2.32 K/mm3 (1.1-4.5); Lymphocytes Percent Manual 11 % (18-44); Monocytes Absolute Manual 1.68 K/mm3 (0.1-0.90); Monocytes Percent Manual 8 % (3-9); Platelet Estimate Adequate (Adequate)
[2024-12-06 17:14] LABS: Add Urine Microscopic? YES; Appearance Urine Clear (Clear); Bilirubin Urine 1+ (Negative); Blood Urine Trace-intact (Negative); Color Urine Dark Yellow (Yellow); Glucose Urine UA 3+ (Negative); Ketones Urine Trace (Negative); Leukocyte Esterase Ur Negative LEU/UL (Negative); Nitrate Urine Negative (Negative); Protein Urine 2+ (Negative); Urobilinogen Urine 0.2 mg/dL (0.2-1.0); pH Urine 5.5 (5.0-8.0)
[2024-12-06 17:28] LABS: Bacteria Urine 1+ /hpf; RBC Urine 0-2 /hpf (0-2); Squamous Epithelial Cell Urine Few /hpf (Few); WBC Urine None seen /hpf (0-3)
[2024-12-06] MEDS: PIPERACILLN/TAZ 3.375GM/NS50ML 3.375 GM/50 ML BAG IVPB ×2 (17:56→23:01)
[2024-12-06] MEDS: SODIUM CHLORIDE 0.9% IV 1,000 ML 150 ML IV CONT (19:02)
--- NOTE | 2024-12-06 19:06 | ADMGEN ---
This patient, Morteza Storey, was admitted to 2nd Floor Room 209-1. Patient/family oriented to hospital policies and general routines including ID bracelet, bed and alarms, visiting hours, pain management, procedures, bathroom and other care routines, personal items, smoking policy, room service/diet, and visiting hours. Information on how to activate the Rapid Response Team has been discussed. Patient/Family are encouraged to report perceived risks to care and to ask questions if they do not understand what they are told or what they should do.
[2024-12-06] MEDS: MIRTAZAPINE 15 MG TABLET PO (20:31)
[2024-12-06] MEDS: MELATONIN 5 MG TABLET PO (20:31)
[2024-12-07] MEDS: SODIUM CHLORIDE 0.9% IV 1,000 ML 150 ML IV CONT (01:38)
[2024-12-07] MEDS: PIPERACILLN/TAZ 3.375GM/NS50ML 3.375 GM/50 ML BAG IVPB (05:10)
[2024-12-07] MEDS: MORPHINE SULFATE (*CRX) 2 MG/ML INJ 4 MG IV PUSH (07:11)
[2024-12-07 08:00] VITALS: BP 118/74; PULSE 100; RESP 20; TEMP 37.1; O2SAT 97
[2024-12-07] MEDS: lisinopriL 20 MG TABLET PO (08:53)
[2024-12-07] MEDS: MULTIVITAMINS THERAPEUTIC TAB (*BKC) 1 TABLET PO (08:53)
[2024-12-07] MEDS: MAGNESIUM OXIDE 400 MG TABLET PO (08:53)
[2024-12-07 08:54] VITALS: PULSE 100
[2024-12-07] MEDS: EMPAGLIFLOZIN 10 MG TABLET PO (08:54)
[2024-12-07] MEDS: METOPROLOL SUCCINATE EXT REL 25 MG TABCR PO (08:54)
[2024-12-07] MEDS: CITALOPRAM HYDROBROMIDE 10 MG TABLET PO (08:54)
[2024-12-07] MEDS: [UNRECOGNIZED DRUG - OTHER] PO ×2 (09:06→12:39)
[2024-12-07] MEDS: CARBIDOPA LEVODOPA ENTACAPONE PO ×2 (09:06→12:39)
--- NOTE | 2024-12-07 09:08 | P.SS_ITS ---
Same Day Admit/Disch: HPI History of Present Illness Chief complaint: ACUTE DIVERTICULITIS ZHEN Narrative: Morteza Storey is a 54 year old male With a significant past medical history of Parkinson's disease, hypertension, obstructive sleep apnea, insomnia who presented to the hospital with complaint of abdominal pain mainly in the left lower quadrant which started 3 days ago. He did have some associated nausea and vomiting yesterday and loose stools. He is still reporting LLQ pain today however his nausea and vomiting has resolved. Workup in the hospital included abdomen/pelvis CT which showed findings suggestive of acute diverticulitis of the descending colon no drainable abscess or fluid collection was seen, no perforation was seen. Initial labs showed a white blood cell count of 21.1, hemoglobin 13.0, sodium 130, chloride 97, creatinine 1.51, EGFR 48, blood glucose 112, albumin 2.8. UA was obtained which showed 2+ urine protein, 3+ urine glucose, trace urine ketone, trace urine blood, 1+ urine bilirubin, 1+ bacteria. Patient was given 1 L of normal saline, Zofran, morphine, Toradol, Zosyn while in the ED. [facility] Past Medical History Medical History Motor fluctuations related to medication use in Parkinson's disease Excessive daytime sleepiness Obstructive sleep apnea Insomnia REM behavioral disorder Parkinson's Disease Hypertension GI bleed Surgical History Surgical History History of inguinal hernia repair Laparoscopic bilateral inguinal hernia repair with mesh, da Etta assisted on 07/02/23 W Family History Family History Father Family history of type 2 diabetes mellitus Other Inguinal hernia Mother , age 70 Pseudobulbar palsy, ministrokes Pseudobulbar palsy Breast cancer Social History Social History Social History: Caffeine-occasionally Smoking status: Never smoker Alcohol intake: never Alcohol use details: RARE Substance use: never Substance use type: does not use Do You Feel Safe in your Home?: Yes Lack of Transportation: No Lack of Food: Never True Current Housing: I Have Housing Concerned About Future Housing: No Difficulty Paying Gas/Electric Bills: No Difficulty Paying for Meds: No Currently Unemployed: No Education: Bachelor's Degree Difficulty w/ Childcare or Family Care: No Living arrangements: with family Occupation/Education: occupation 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 Spiritual care concerns: No Same Day Admit/Disch: Med Pre-admit Medications Home Medications ?Medication ?Instructions ?Recorded ?Confirmed ?Type magnesium oxide 400 mg PO DAILY 07/01/19 12/06/24 History multivitamin 1 tablet PO DAILY 07/01/19 12/06/24 History melatonin 5 mg capsule 5 mg PO QHS 03/22/24 12/06/24 History citalopram 10 mg tablet See Rx Instructions .Route 03/25/24 12/06/24 Rx .COMPLEX #90 tabs mirtazapine 15 mg tablet (Remeron) 15 mg PO QHS #90 tabs 05/27/24 12/06/24 Rx carbidopa 50 mg-levodopa 200 1 tablet PO TID #90 tabs 07/15/24 12/06/24 Rx mg-entacapone 200 mg tablet lisinopril 20 mg tablet See Rx Instructions .Route 09/24/24 12/06/24 Rx .COMPLEX #90 tabs metoprolol succinate 25 mg See Rx Instructions .Route 10/11/24 12/06/24 Rx tablet,extended release 24 hr .COMPLEX #90 tabs empagliflozin 10 mg tablet 10 mg PO QAM #90 tabs 10/13/24 12/06/24 Rx (Jardiance) hydrocodone 5 mg-acetaminophen 325 1 tablet PO Q4H PRN Pain Rated 4-6 12/07/24 Rx mg tablet #20 tabs Review of Systems Review of Systems All systems reviewed & are unremarkable except as noted in HPI and below Exam Narrative: General: In no acute distress, well nourished Head: atraumatic, no encephalopathy Eyes: PERRLA, sclera clear ENT: moist mucous membranes, nasal passages clear Neck: supple, no JVD, no adenopathy, trachea midline Cardiac: Normal S1 and S2. No murmur, gallops or friction rubs, peripheral pulses intact. Respiratory: Lungs clear to auscultation, no adventitious lung sounds, currently on room air Gastrointestinal: soft, mildly distended, tenderness to palpation LLQ, normoactive bowel sounds. He is passing gas : voiding without difficulty. Extremities: moves all extremities well, no edema Skin: clean, dry, intact. No wounds or lesions. Neuro: Alert and oriented x4, cranial nerves intact, no neuro deficits. slow response time Psych: normal mood, flat affect, interactive DS: Data Data Completed and Pending Completed studies during hospitalization: abdomen/pelvis CT Pending studies at discharge: none Labs on day of discharge: Labs from last 24 hours 12/06/24 12/06/24 16:26 16:11 WBC 21.1 H* RBC 4.76 Hgb 13.0 L Hct 40.1 MCV 84.2 MCH 27.3 MCHC 32.4 RDW 14.6 H Plt Count 336 MPV 9.3 Immature Gran % (Auto) Not Reportable Neut % (Auto) Not Reportable Lymph % (Auto) Not Reportable [place] % (Auto) Not Reportable Eos % (Auto) Not Reportable Baso % (Auto) Not Reportable Lymph # (Auto) Not Reportable [place] # (Auto) Not Reportable Eos # (Auto) Not Reportable Baso # (Auto) Not Reportable Abs Immat Gran (auto) Not Reportable Absolute Neuts (auto) Not Reportable Absolute Nucleated RBC Not Reportable Total Counted 100 Neutrophils % (Manual) 80 H Band Neutrophils % 1 Lymphocytes % (Manual) 11 L Monocytes % (Manual) 8 Eosinophils % (Manual) 0 L Basophils % (Manual) 0 Nucleated RBC % Not Reportable Abs Neuts (Manual) 17.09 H Abs Lymphs (Manual) 2.32 Abs Monocytes (Manual) 1.68 H Absolute Eos (Manual) 0.00 L Abs Basophils (Manual) 0.00 Platelet Estimate Adequate Schistocytes Not Reportable Sodium 130 L Potassium 4.0 Chloride 97 L Carbon Dioxide 23 Anion Gap 10 BUN 18 Creatinine 1.51 H Estim Creat Clear Calc 51 Estimated GFR 48 L Glucose 112 H Calculated Osmolality 272 L Calcium 8.7 Total Bilirubin 0.7 AST 12 L ALT 10 L Alkaline Phosphatase 92 Total Protein 7.8 Albumin 2.8 L Lipase 11 L Urine Color Dark yellow Urine Appearance Clear Urine pH 5.5 Ur Specific [place] 1.020 Urine Protein 2+ H Urine Glucose (UA) 3+ H Urine Ketones Trace H Ur Blood (Man) Trace-intact H Urine Nitrate Negative Urine Bilirubin 1+ H Urine Urobilinogen 0.2 Leukocyte Esterase Rfl Negative Urine RBC 0-2 Urine WBC None seen Ur Squamous Epith Cells Few Urine Bacteria 1+ H Procedures/Treatments: none Imaging Radiologist's impression: CLINICAL INDICATION: Left-sided abdominal pain COMPARISON: None. TECHNIQUE: Multiple contiguous axial images of the abdomen and pelvis were performed following the administration of with 100 mL Omnipaque-350 intravenous contrast The dose-length product (DLP) was 462.20 mGy-cm. Automated exposure control and iterative reconstruction technique were employed. FINDINGS/OBSERVATIONS: Visualized lower thorax: Trace left basilar atelectasis. The remainder of the bilateral lung bases are clear The heart is of normal size, without pericardial effusion. Small hiatal hernia is present. Liver: The liver demonstrates homogeneous enhancement and is enlarged measuring 20 cm in longitudinal dimension. Gallbladder and biliary system: The gallbladder is distended, and otherwise unremarkable. Pancreas: The pancreas enhances homogeneously without ductal dilatation. Spleen: The spleen enhances homogeneously and is not enlarged. Kidneys: Focus of fluid attenuation exophytic from the interpolar region of the left kidney measuring 26 mm in greatest dimension, statistically a cyst for which no further follow-up is needed. The remainder of the bilateral kidneys otherwise enhance symmetrically without hydronephrosis or renal calculi. Adrenal glands: Unremarkable. Gastrointestinal tract: Asymmetric mural thickening of the descending colon with significant surrounding inflammatory change, findings suggestive of acute diverticulitis for which clinical correlation is needed. No drainable fluid collection is present. No gross perforation is noted. Follow-up to resolution is recommended as a malignancy has a similar appearance. Fecal stasis distending the rectum. Appendix: The air-filled appendix is of normal caliber (axial series, images 141 through 149) Vasculature: Unremarkable. Lymph nodes: No pathologically enlarged or morphologically suspicious lymph nodes within the retroperitoneum or at the root of the mesentery. Pelvic structures: The bladder is decompressed, and otherwise unremarkable. The prostate gland is not enlarged. Body wall and musculoskeletal: Small fat-containing umbilical hernia. No significant degenerative disease within the lower thoracic or lumbosacral spine. IMPRESSION: Findings suggestive of acute diverticulitis of the descending colon, as detailed above. Follow-up to resolution is recommended as a malignancy has a similar appearance. No drainable fluid collection. No gross perforation. Reviewed, dictated and finalized at location A. DS: Summary Hospital Course Reason for hospitalization: sepsis diverticulitis Parkinson's disease hypertension Hospital Course: Morteza Storey is a 54 year old male With a significant past medical history of Parkinson's disease, hypertension, obstructive sleep apnea, insomnia who presented to the hospital with complaint of abdominal pain mainly in the left lower quadrant which started 3 days ago. He did have some associated nausea and vomiting yesterday and loose stools. Workup in the hospital included abdomen/pelvis CT which showed findings suggestive of acute diverticulitis of the descending colon no drainable abscess or fluid collection was seen, no perforation was seen. Initial labs showed a white blood cell count of 21.1, hemoglobin 13.0, sodium 130, chloride 97, creatinine 1.51, EGFR 48, blood glucose 112, albumin 2.8. UA was obtained which showed 2+ urine protein, 3+ urine glucose, trace urine ketone, trace urine blood, 1+ urine bilirubin, 1+ bacteria. Patient was given 1 L of normal saline, Zofran, morphine, Toradol, Zosyn while in the ED. On examination today patient did have LLQ pain, abdomen is mildly distended. He was able to hold clear liquid diet down this morning. He denies any fever, chills, nausea, vomiting, diarrhea, chest pain, shortness a breath. He is currently afebrile, VSS, he is currently on room air. Patient was initially meeting sepsis criteria with a white blood cell count of 21.1, T-max 100.8?, pulse rate of 113, respiratory rate of 20, diverticulitis on the CT scan, acute kidney injury. Patient was given 1 L of normal saline however a lactic acid was not checked nor was blood cultures obtained upon presentation. After the 1 L of normal saline it does appear that his vital signs did improve as well as his temperature. Zosyn was changed to Cipro and Flagyl. He will need to take these for 10 days, follow a low fiber diet, and follow up with GI in 2 weeks. His last colonoscopy was back in 2019 and with concerns of malignancy on the CT scan, he was advised to follow up and get another colonoscopy with potential biopsy to rule out malignancy. Labs today shown a WBC 14.2, Creatinine of 1.72. his baseline creatinine ranges 1.34 to 1.47, EGFR 50-55. renal ultrasound showed left renal cyst, uncomplicated with no other definite abnormality. a gave patient the option of staying an additional day to recheck his creatinine or he can follow up with his primary on Friday after getting recheck lab on his creatinine in 3 days. patient wishes to go home and do follow-up appointments. We will continue to hold his lisinopril in the meantime as his blood pressures have been ranging 108/67 to 118/74. He is stable for discharge at this time. Final diagnosis: Sepsis, Diverticulitis, Acute kidney injury Status at Discharge Cognitive/behavioral status at discharge: alert oriented x4 Functional status at discharge: independent ambulation Overall status at discharge: patient is progressing back to baseline Time Spent with Patient Time attestation: Total time spent providing and/or coordinating discharge services: Time spent: Greater than 30 minutes DS: Admitting Diagnosis Discharge Date 12/07/24 Admitting Diagnosis sepsis diverticulitis Parkinson's disease hypertension Discharge Plan Discharge Attending physician on discharge: Enrico Gutierrez Discharging Clinician: Ashtyn Razo Anticipated Discharge Date/Time: 12/07/24 09:17 Patient Disposition: Home Activity: as tolerated Diet: as tolerated and low fiber Discharge Instructions: Discharge Instructions for Diverticulitis You have been diagnosed with diverticulitis. This is a condition?in which?small pouches form in your colon (large intestine) and become inflamed or infected. Follow the guidelines below for home care. As you recover Tips for recovery include: Eating a low-fiber diet at first while you recover. Your health care provider may?advise a liquid diet.?This gives your bowel a chance to rest so that it can recover.Eating foods, such as flake cereal, mashed potatoes, pancakes, waffles, pasta, white bread, rice, applesauce, bananas, eggs, fish, poultry, tofu, and well-cooked vegetables.Taking your medicines?as directed. Don't stop taking the medicines, even if you feel better.Keeping track of your temperature and reporting any rise in temperature to your provider.Taking any prescribed antibiotics exactly as directed. Don't miss any and keep taking them even if you feel better.Drinking 6 to 8 glasses of water every day, unless told otherwise.Using a heating pad or hot water bottle to reduce abdominal cramping or pain. Preventing diverticulitis in the future Tips for prevention include: Eating a high-fiber diet. Fiber adds bulk to the stool so that it passes through the large intestine more easily.Continuing to drink 6 to 8 glasses of water every day, unless told otherwise.Starting an exercise program. Ask your health care provider how to get started. You can benefit from simple activities, such as walking or gardening.Treating diarrhea with a bland diet. Start with liquids only,?then slowly add fiber over time.Watching for changes in your bowel movements (constipation to diarrhea).Preventing constipation with fiber and adding a stool softener if needed.?Getting plenty of rest and sleep.Avoiding nonsteroidal anti-inflammatory drugs, such as ibuprofen, if possible. They increase the risk of diverticulitis.Not smoking. Follow-up care Make a follow-up appointment with Gastrointestinal specialist. You may need a colonoscopy or other imaging tests of your colon. When should you call your doctor Contact your health care provider or get medical care right away if you have: A fever of 100.4?F (38?C) or higher, or as advised by your provider. Chills. Severe cramps in?your belly, most often the lower left side. Soreness in?your belly, most often the lower left side. Nausea and vomiting. Bleeding from your rectum. * finish all of your antibiotics as directed even if your feeling better * follow-up with your primary care doctor in 1 week. Get referral to gastrointestinal specialist as she will likely need a colonoscopy with biopsy * I provided Dr. Freitas (Gastrointestinal specialist) information out of [facility] below under follow ups. * your creatinine was noted to be elevated and ranging 1.51-1.72. It appears that your baseline runs between 1.34-1.47. Continue to hold her lisinopril until you follow-up with your primary care doctor within 1 week. * Your CT scan shown that you had a cyst on your left kidney and we went ahead and obtained an ultrasound of your kidney which shown the left renal cyst which was uncomplicated and no other definitive abnormality was seen. No follow-up is necessary. * Obtain labs prior to your follow up appointment with your primary care doctor to recheck your white blood cell count and creatinine Patient Instructions: Antibiotic Form, Ciprofloxacin (By mouth), Hydrocodone/Acetaminophen (By mouth), Metronidazole (By mouth), Diverticulitis (DC), Chronic Kidney Disease (DC), Low Fiber Diet (DC), Diverticulitis Diet (DC), Kidney Cyst (GEN), Colonoscopy (DC) Patient Language: Swazi Stand Alone Forms: General Discharge Information Follow-up/Referrals: Valerio Tovar DO [Primary Care Provider] - 12/15/24 10:00 am ( will need gastrointestinal specialist for colonoscopy with biopsy) Sumit Gilbert MD [Physician] - 2 weeks ( patient has diverticulitis and will likely require colonoscopy with biopsy according to latest CT read.) Discharge Medications: New hydrocodone-acetaminophen 5-325 mg Tablet 1 tablet PO Q4H PRN (Reason: Pain Rated 4-6) Qty: 20 0RF ondansetron 4 mg tablet,disintegrating 4 mg PO Q4H Qty: 12 0RF Rx Instructions: give 1st dose 30min before emetogenic chemo ciprofloxacin HCl 500 mg tablet 500 mg PO Q12H Qty: 20 0RF metronidazole 500 mg tablet 500 mg PO Q8H Qty: 30 0RF Continued citalopram 10 mg tablet See Rx Instructions .ROUTE .COMPLEX Qty: 90 2RF Dose Instruction: TAKE 1 TABLET BY MOUTH EVERY DAY Rx Instructions: TAKE 1 TABLET BY MOUTH EVERY DAY melatonin 5 mg capsule 5 mg PO QHS multivitamin Tablet 1 tablet PO DAILY magnesium oxide 400 mg magnesium Tablet 400 mg PO DAILY mirtazapine [Remeron] 15 mg tablet 15 mg PO QHS Qty: 90 2RF Rx Instructions: Start with half tablet at bedtime and may increase to full tablet after 1 or 2 weeks if no side effects bhakosiip-yobckilp-csuuzvfmzi 50-200-200 mg tablet 1 tablet PO TID Qty: 90 6RF metoprolol succinate 25 mg tablet extended release 24 hr See Rx Instructions .ROUTE .COMPLEX Qty: 90 0RF Dose Instruction: TAKE 1 TABLET BY MOUTH EVERY DAY Rx Instructions: TAKE 1 TABLET BY MOUTH EVERY DAY Jardiance 10 mg tablet 10 mg PO QAM Qty: 90 0RF Held lisinopril 20 mg tablet See Rx Instructions .ROUTE .COMPLEX Qty: 90 0RF Hold Instructions: Resume on 12/14/24. continue to hold into urine instructed by your primary care doctor to safely resume Dose Instruction: TAKE 1 TABLET 20 MG BY MOUTH EVERY DAY Rx Instructions: TAKE 1 TABLET 20 MG BY MOUTH EVERY DAY Other Ambulatory Orders: Basic Metabolic Panel (Routine) Timeframe: 3 Days Location: Determined by Patient Ordered By: Ashtyn Razo Complete Blood Count with Diff (Routine) Timeframe: 3 Days Location: Determined by Patient Ordered By: Ashtyn Razo Date of admission: 12/06/24 17:54 Primary Care Provider: Valerio Tovar Admitting Provider: Enrico Gutierrez Attending physician on admission: Ashtyn Razo Condition: Improved Quality VTE Prophylaxis VTE prophylaxis: mechanical ordered Hospitalist MIPS Advance Care Plan I have confirmed that the patient's Advanced Care Plan is present, code status is documented, or surrogate decision maker is listed in patient medical record.: Yes Medication Reconciliation I have utilized all available resources to obtain, update and review the patients current medications (includes all prescriptions, OTC, herbals, cannabis, and nutritional supplements).: Yes Heart Failure (Exclusion) Patient has history of Heart Transplant or Left Ventricular Assistive Device?: No IF YES, STOP HERE Heart Failure (Qualifier) Patient has current or prior documentation of LVEF less than or equal to 40%, or mod/servere depressed LVSF?: No IF NO, STOP HERE
[2024-12-07 09:36] LABS: Hemoglobin 11.8 g/dL (14.0-18.0); Mean Corpuscular HGB Conc 31.9 g/dL (32-36); Mean Corpuscular Hemoglobin 27.5 pg (27.0-31.0); Mean Corpuscular Volume 86.2 fL (78.0-102.0); Mean Platelet Volume 9.6 fl (8.7-11.0); Platelet Count Result 286 K/mm3 (150-420); Red Blood Count 4.29 M/mm3 (4.70-6.10); Red Cell Distribution Width 14.8 % (11.6-14.4); White Blood Count 14.2 K/mm3 (4.8-10.8)
[2024-12-07 09:52] LABS: Alanine Aminotransferase 11 U/L (16-63); Albumin Level 2.2 g/dL (3.4-5.0); Alkaline Phosphatase 83 U/L (46-116); Anion Gap 11 mmol/L (4-12); Aspartate Amino Transferase 19 U/L (15-37); Bilirubin,Total 0.5 mg/dL (0.00-1.00); Blood Urea Nitrogen 17 mg/dL (7-18); Calcium 8.1 mg/dL (8.5-10.1); Carbon Dioxide 23 mmol/L (21-32); Chloride 100 mmol/L (98-108); Estimated CRCL calculation 45 ml/min; Estimated Glomerular Filt Rate 41; Glucose 157 mg/dL (70-99); Magnesium 1.9 mg/dL (1.8-2.4); Osmolality Calculated 282 mOsm/kg (285-295); Potassium 3.9 mmol/L (3.5-5.1); Sodium 134 mmol/L (136-145); Total Protein 6.9 g/dL (6.4-8.2)
[2024-12-07 10:04] LABS: Band Neutrophils Percent 3 % (0-6); Basophils Percent Manual 0 % (0-1); Eosinophils Percent Manual 0 % (1-6); Lymphocytes Absolute Manual 0.71 K/mm3 (1.1-4.5); Lymphocytes Percent Manual 5 % (18-44); Monocytes Absolute Manual 1.42 K/mm3 (0.1-0.90); Monocytes Percent Manual 10 % (3-9); Neutrophils Absolute Manual 12.07 K/mm3 (1.3-6.7); Neutrophils Percent Manual 82 % (46-73); Schistocytes None Seen; Total Cells Counted 100
[2024-12-07 10:20] LABS: Platelet Estimate Adequate (Adequate)
--- NOTE | 2024-12-07 10:50 | P.HP_ITS ---
H&P: HPI History of Present Illness Date/Time: 12/07/24 10:50 Chief Complaint: Abdominal pain Narrative: Morteza Storey is a 54 year old male With a significant past medical history of Parkinson's disease, hypertension, obstructive sleep apnea, insomnia who presented to the hospital with complaint of abdominal pain mainly in the left lower quadrant which started 3 days ago. He did have some associated nausea and vomiting yesterday and loose stools. Workup in the hospital included abdomen/pelvis CT which showed findings suggestive of acute diverticulitis of the descending colon no drainable abscess or fluid collection was seen, no perforation was seen. Initial labs showed a white blood cell count of 21.1, hemoglobin 13.0, sodium 130, chloride 97, creatinine 1.51, EGFR 48, blood glucose 112, albumin 2.8. UA was obtained which showed 2+ urine protein, 3+ urine glucose, trace urine ketone, trace urine blood, 1+ urine bilirubin, 1+ bacteria. Patient was given 1 L of normal saline, Zofran, morphine, Toradol, Zosyn while in the ED. Patient was initially meeting sepsis criteria with a white blood cell count of 21.1, T-max 100.8?, pulse rate of 113, respiratory rate of 20, diverticulitis on the CT scan, acute kidney injury. Patient was given 1 L of normal saline however a lactic acid was not checked nor was blood cultures obtained upon presentation. After the 1 L of normal saline it does appear that his vital signs did improve as well as his temperature. On examination today patient did have LLQ pain, abdomen is mildly distended. He was able to hold clear liquid diet down this morning. He denies any fever, chills, nausea, vomiting, diarrhea, chest pain, shortness a breath. Labs today showed a white blood cell count of 14.2, hemoglobin 11.8, sodium 134, creatinine 1.72, EGFR 41, blood sugars ranging 112-157 serum osmolarity of 282, albumin 2.2. Review of Systems Review of Systems: All systems reviewed & are unremarkable except as noted in HPI and below PMFSH Past Medical History Medical History Motor fluctuations related to medication use in Parkinson's disease Excessive daytime sleepiness Obstructive sleep apnea Insomnia REM behavioral disorder Parkinson's Disease Hypertension GI bleed Surgical History Surgical History History of inguinal hernia repair Laparoscopic bilateral inguinal hernia repair with mesh, da Etta assisted on 07/02/23 R[facility] Family History Family History Father Family history of type 2 diabetes mellitus Other Inguinal hernia Mother , age 70 Pseudobulbar palsy, ministrokes Pseudobulbar palsy Breast cancer Social History Social History Social History: Caffeine-occasionally Smoking status: Never smoker Alcohol intake: never Alcohol use details: RARE Substance use: never Substance use type: does not use Do You Feel Safe in your Home?: Yes Lack of Transportation: No Lack of Food: Never True Current Housing: I Have Housing Concerned About Future Housing: No Difficulty Paying Gas/Electric Bills: No Difficulty Paying for Meds: No Currently Unemployed: No Education: Bachelor's Degree Difficulty w/ Childcare or Family Care: No Living arrangements: with family Occupation/Education: occupation 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 Spiritual care concerns: No Meds Home Medications and Allergies Home Medications ?Medication ?Instructions ?Recorded ?Confirmed ?Type magnesium oxide 400 mg PO DAILY 07/01/19 12/06/24 History multivitamin 1 tablet PO DAILY 07/01/19 12/06/24 History melatonin 5 mg capsule 5 mg PO QHS 03/22/24 12/06/24 History citalopram 10 mg tablet See Rx Instructions .Route 03/25/24 12/06/24 Rx .COMPLEX #90 tabs mirtazapine 15 mg tablet (Remeron) 15 mg PO QHS #90 tabs 05/27/24 12/06/24 Rx carbidopa 50 mg-levodopa 200 1 tablet PO TID #90 tabs 07/15/24 12/06/24 Rx mg-entacapone 200 mg tablet lisinopril 20 mg tablet See Rx Instructions .Route 09/24/24 12/06/24 Rx .COMPLEX #90 tabs metoprolol succinate 25 mg See Rx Instructions .Route 10/11/24 12/06/24 Rx tablet,extended release 24 hr .COMPLEX #90 tabs empagliflozin 10 mg tablet 10 mg PO QAM #90 tabs 10/13/24 12/06/24 Rx (Jardiance) Allergies Allergy/AdvReac Type Severity Reaction Status Date / Time No Known Allergies Allergy Verified 12/06/24 16:48 Vital Signs Vital Signs - 24 hr 12/06/24 16:05 12/06/24 16:52 12/06/24 16:53 Temperature 100.8 F H Pulse Rate 113 H 94 104 H Respiratory Rate 18 20 20 Blood Pressure 115/75 106/61 Pulse Oximetry 97 93 93 Oxygen Delivery Room Air Room Air 12/06/24 17:15 12/06/24 17:30 12/06/24 17:45 Temperature Pulse Rate 94 Respiratory Rate 20 Blood Pressure Pulse Oximetry 91 92 93 Oxygen Delivery Room Air 12/06/24 17:57 12/06/24 18:00 12/06/24 18:01 Temperature 98.5 F Pulse Rate 94 94 Respiratory Rate 20 20 Blood Pressure 100/68 Pulse Oximetry 94 93 93 Oxygen Delivery Room Air 12/06/24 18:45 12/06/24 20:00 12/06/24 23:55 Temperature 98.4 F 98.2 F Pulse Rate 87 87 87 Respiratory Rate 16 16 16 Blood Pressure 109/65 108/67 Pulse Oximetry 94 94 95 Oxygen Delivery Room Air Room Air Room Air 12/07/24 08:00 12/07/24 08:54 Temperature 98.7 F Pulse Rate 100 100 Respiratory Rate 20 Blood Pressure 118/74 Pulse Oximetry 97 Oxygen Delivery Room Air Exam Narrative: General: In no acute distress, well nourished Head: atraumatic, no encephalopathy Eyes: PERRLA, sclera clear ENT: moist mucous membranes, nasal passages clear Neck: supple, no JVD, no adenopathy, trachea midline Cardiac: Normal S1 and S2. No murmur, gallops or friction rubs, peripheral pulses intact. Respiratory: Lungs clear to auscultation, no adventitious lung sounds, currently on room air Gastrointestinal: soft, mildly distended, tenderness to palpation LLQ, normoactive bowel sounds. He is passing gas : voiding without difficulty. Extremities: moves all extremities well, no edema Skin: clean, dry, intact. No wounds or lesions. Neuro: Alert and oriented x4, cranial nerves intact, no neuro deficits. slow response time Psych: normal mood, flat affect, interactive H&P: Results Labs Labs: Short CBC 12/06/24 12/07/24 Range/Units 16:26 09:17 WBC 21.1 H* 14.2 H (4.8-10.8) K/mm3 Hgb 13.0 L 11.8 L (14.0-18.0) g/dL Hct 40.1 37.0 L (40.0-54.0) % Plt Count 336 286 (150-420) K/mm3 BMP 12/06/24 12/07/24 16:26 09:17 Sodium 130 L 134 L Potassium 4.0 3.9 Chloride 97 L 100 Carbon Dioxide 23 23 BUN 18 17 Creatinine 1.51 H 1.72 H Glucose 112 H 157 H Calcium 8.7 8.1 L Liver Function 12/06/24 12/07/24 Range/Units 16:26 09:17 Total Bilirubin 0.7 0.5 (0.00-1.00) mg/dL AST 12 L 19 (15-37) U/L ALT 10 L 11 L (16-63) U/L Alkaline Phosphatase 92 83 (46-116) U/L Albumin 2.8 L 2.2 L (3.4-5.0) g/dL Urine 12/06/24 Range/Units 16:11 Urine Color Dark yellow (Yellow) Urine Appearance Clear (Clear) Urine pH 5.5 (5.0-8.0) Ur Specific [place] 1.020 (1.010-1.020) Urine Protein 2+ H (Negative) Urine Glucose (UA) 3+ H (Negative) Imaging CT of the abdomen and pelvis: Radiologist's impression: Procedures/Treatments: none Imaging Radiologist's impression: CLINICAL INDICATION: Left-sided abdominal pain COMPARISON: None. TECHNIQUE: Multiple contiguous axial images of the abdomen and pelvis were perfo rmed following the administration of with 100 mL Omnipaque-350 intravenous contrast The dose-length product (DLP) was 462.20 mGy-cm. Automated exposure control and iterative reconstruction technique were employed. FINDINGS/OBSERVATIONS: Visualized lower thorax: Trace left basilar atelectasis. The remainder of the bilateral lung bases are clear The heart is of normal size, without pericardial effusion. Small hiatal hernia is present. Liver: The liver demonstrates homogeneous enhancement and is enlarged measuring 20 cm in longitudinal dimension. Gallbladder and biliary system: The gallbladder is distended, and otherwise unremarkable. Pancreas: The pancreas enhances homogeneously without ductal dilatation. Spleen: The spleen enhances homogeneously and is not enlarged. Kidneys: Focus of fluid attenuation exophytic from the interpolar region of the left kidney measuring 26 mm in greatest dimension, statistically a cyst for which no further follow-up is needed. The remainder of the bilateral kidneys otherwise enhance symmetrically without hydronephrosis or renal calculi. Adrenal glands: Unremarkable. Gastrointestinal tract: Asymmetric mural thickening of the descending colon with significant surrounding inflammatory change, findings suggestive of acute diverticulitis for which clinical correlation is needed. No drainable fluid collection is present. No gross perforation is noted. Follow-up to resolution is recommended as a malignancy has a similar appearance. Fecal stasis distending the rectum. Appendix: The air-filled appendix is of normal caliber (axial series, images 141 through 149) Vasculature: Unremarkable. Lymph nodes: No pathologically enlarged or morphologically suspicious lymph nodes within the retroperitoneum or at the root of the mesentery. Pelvic structures: The bladder is decompressed, and otherwise unremarkable. The prostate gland is not enlarged. Body wall and musculoskeletal: Small fat-containing umbilical hernia. No significant degenerative disease within the lower thoracic or lumbosacral spine. IMPRESSION: Findings suggestive of acute diverticulitis of the descending colon, as detailed above. Follow-up to resolution is recommended as a malignancy has a similar appearance. No drainable fluid collection. No gross perforation. Reviewed, dictated and finalized at location A. Assessment and Plan Assessment and plan (1) Diverticulosis large intestine w/o perforation or abscess w/bleeding: Code(s): K57.31 - Diverticulosis of large intestine without perforation or abscess with bleeding Status: Acute Assessment and Plan: * CT of the abdomen and pelvis showed findings suggestive of acute diverticulitis of the descending colon, follow-up to resolution is recommended as a malignancy has a similar appearance, no drainable fluid collection or gross perforation. * Patient was given a dose of Zosyn while in the ED * he was transitioned to Cipro and Flagyl * continue low-fiber diet * continue pain control * continue nausea control * patient will need follow-up with GI specialist after treatment of his dive rticulitis for potential colonoscopy with biopsy considering his latest CT scan results (2) Dehydration: Code(s): E86.0 - Dehydration Status: Acute Assessment and Plan: * initially presenting with dehydration from nausea and vomiting * patient was given 1 L of normal saline while in the ED * continue IV fluids at 150 mL/hour for hydration (3) Acute kidney injury: Code(s): N17.9 - Acute kidney failure, unspecified Status: Acute Assessment and Plan: * initial creatinine 1.51, EGFR 48 * baseline creatinine appears to run 1.34-1.47, EGFR 50-55 * creatinine today is 1.72, EGFR 41 despite fluid resuscitation * he was noted to have 2+ protein in the urine * will obtain urine osmolarity, urine sodium, renal ultrasound * continue IV fluids at 150 mL/hour (4) Hypertension: Qualifiers: Hypertension type: primary hypertension Qualified Code(s): I10 - Essential (primary) hypertension Code(s): I10 - Essential (primary) hypertension Status: Acute Assessment and Plan: * blood pressures ranging 108/67 to 118/74 * continue metoprolol * will hold lisinopril due to acute kidney injury (5) Parkinson's Disease: Code(s): G20 - Parkinson's disease Status: Acute Assessment and Plan: * continue carbidopa levodopa Quality VTE Prophylaxis VTE prophylaxis: mechanical ordered Hospitalist MIPS Advance Care Plan I have confirmed that the patient's Advanced Care Plan is present, code status is documented, or surrogate decision maker is listed in patient medical record.: Yes Medication Reconciliation I have utilized all available resources to obtain, update and review the patients current medications (includes all prescriptions, OTC, herbals, cannabis, and nutritional supplements).: Yes
[2024-12-07] MEDS: HYDROcodone/acetaminophen (*CRX) 5-325 MG TABLET 1 TAB PO (12:38)
[2024-12-07] MEDS: metroNIDAZOLE 250 MG TABLET 500 MG PO (12:38)
--- NOTE | 2024-12-07 14:07 | PC.NURSE ---
1310 dc to 's auto. she verbalizes an understanding of paperwork. encourgaed to call back if questions arrises. home meds returned.
--- NOTE | 2024-12-08 12:05 | PC.NURSE ---
Called Morteza for discharge call back. Left requesting he call facility with questions or concerns he may have.
--- NOTE | 2024-12-13 09:57 | PC.NURSE ---
Called answered in second attempt for discharge call back. Morteza informs all instructions were understandable. Had questions on Pain med r/t do I have to take it if I am not in pain? Instructed medication only as needed PRN. He informs he is going to follow up appointment with PCP today, Encouraged James to take his discharge instructions from this hospital stay along with all medications he takes on daily basis. Morteza agreeable.
== END 2024-12-07 13:10 | disposition home or self-care (01) ==
LOC: CHSED 16:26 → CHS2ND 18:01
PROVIDERS: Admitting Provider Internal Medicine; Emergency Provider Emergency Medicine; PCP Family Medicine; Visit Provider Nurse Practitioner Acute Care
DX: A41.9 Sepsis, unspecified organism (principal); K57.32 Diverticulitis of large intestine without perforation or abscess without bleeding; N17.9 Acute kidney failure, unspecified; G20.A2 Parkinson's disease without dyskinesia, with fluctuations; I10 Essential (primary) hypertension; E11.9 Type 2 diabetes mellitus without complications; G47.00 Insomnia, unspecified; G47.33 Obstructive sleep apnea (adult) (pediatric); G47.52 REM sleep behavior disorder; Z79.84 Long term (current) use of oral hypoglycemic drugs; Z79.899 Other long term (current) drug therapy
CPT/HCPCS: 36415; 74177; 76775; 80053; 81001; 83690; 83735; 85025; 96361; 96365; 96375; 96376; 99285; A9270; G0378; J1885; J2270; J2405; J2543; J7030; Q9967

== ENCOUNTER 2024-12-10 11:09 | Outpatient (CLI) | payer OTHER, SELFPAY ==
[2024-12-10 11:27] LABS: Hematocrit 37.3 % (40.0-54.0); Hemoglobin 11.8 g/dL (14.0-18.0); Mean Corpuscular HGB Conc 31.6 g/dL (32-36); Mean Corpuscular Hemoglobin 26.8 pg (27.0-31.0); Mean Corpuscular Volume 84.8 fL (78.0-102.0); Mean Platelet Volume 9.1 fl (8.7-11.0); Platelet Count Result 380 K/mm3 (150-420); Red Cell Distribution Width 14.8 % (11.6-14.4); White Blood Count 10.3 K/mm3 (4.8-10.8)
[2024-12-10 11:47] LABS: Anion Gap 9 mmol/L (4-12); Blood Urea Nitrogen 15 mg/dL (7-18); Calcium 8.3 mg/dL (8.5-10.1); Carbon Dioxide 27 mmol/L (21-32); Chloride 98 mmol/L (98-108); Estimated Glomerular Filt Rate 51; Glucose 96 mg/dL (70-99); Osmolality Calculated 278 mOsm/kg (285-295); Potassium 3.9 mmol/L (3.5-5.1); Sodium 134 mmol/L (136-145)
[2024-12-10 12:00] LABS: Iron 14 ug/dL (65-175); Percent Iron Saturation 7 % (12-57)
[2024-12-10 12:28] LABS: Total Cells Counted 100
[2024-12-10 12:29] LABS: Band Neutrophils Percent 0 % (0-6); Basophils Percent Manual 0 % (0-1); Eosinophils Percent Manual 0 % (1-6); Lymphocytes Absolute Manual 1.13 K/mm3 (1.1-4.5); Lymphocytes Percent Manual 11 % (18-44); Monocytes Absolute Manual 0.72 K/mm3 (0.1-0.90); Monocytes Percent Manual 7 % (3-9); Neutrophils Absolute Manual 8.44 K/mm3 (1.3-6.7); Neutrophils Percent Manual 82 % (46-73); Platelet Estimate Adequate (Adequate)
== END 2024-12-10 11:10 | disposition home or self-care (01) ==
LOC: CHSLAB 11:11
PROVIDERS: PCP Nurse Practitioner Family; Visit Provider Nurse Practitioner Acute Care
DX: R79.89 Other specified abnormal findings of blood chemistry (principal); N17.9 Acute kidney failure, unspecified; K57.31 Diverticulosis of large intestine without perforation or abscess with bleeding; E61.1 Iron deficiency
CPT/HCPCS: 36415; 80048; 83540; 83550; 85025

== ENCOUNTER 2025-02-01 08:50 | Outpatient (CLI) | payer OTHER, SELFPAY ==
[2025-02-01 09:09] VITALS: BP 123/67; PULSE 74; RESP 16; TEMP 36.6; O2SAT 99; BMI 19.4
[2025-02-01] MEDS: IRON SUCROSE COMPLEX 300 MG in SODIUM CHLORIDE 0.9% IV 250 ML 125 MG IVPB (09:15)
[2025-02-01 11:35] VITALS: BP 123/74; PULSE 78; RESP 14; O2SAT 97
--- NOTE | 2025-02-01 11:36 | PC.NURSE ---
Patient tolerated #1 of 3 Venofer infusion well. SEE MAR/patient care notes.
== END 2025-02-01 08:51 | disposition home or self-care (01) ==
PROVIDERS: PCP Nurse Practitioner Family; Visit Provider Nurse Practitioner Family
DX: D50.9 Iron deficiency anemia, unspecified (principal)
CPT/HCPCS: 96365; 96366; J1756; J7050

== ENCOUNTER 2025-02-04 08:41 | Outpatient (CLI) | payer OTHER, SELFPAY ==
[2025-02-04] MEDS: IRON SUCROSE COMPLEX 300 MG in SODIUM CHLORIDE 0.9% IV 235 ML 125 MG IVPB (09:20)
[2025-02-04 09:34] VITALS: BP 129/79; PULSE 80; RESP 14; TEMP 36.6; O2SAT 96; BMI 19.4
[2025-02-04 11:23] VITALS: BP 127/77; PULSE 80; RESP 14
--- NOTE | 2025-02-04 11:24 | PC.NURSE ---
Patient tolerated #2 of 3 Venofer infusion well. SEE MAR/patient care notes.
== END 2025-02-04 08:42 | disposition home or self-care (01) ==
PROVIDERS: PCP Nurse Practitioner Family; Visit Provider Nurse Practitioner Family
DX: D50.9 Iron deficiency anemia, unspecified (principal)
CPT/HCPCS: 96365; 96366; J1756; J7050

== ENCOUNTER 2025-02-07 12:19 | Outpatient (CLI) | payer OTHER, SELFPAY ==
[2025-02-07 12:30] VITALS: BMI 26.6
[2025-02-07 12:35] VITALS: BP 126/74; PULSE 76; RESP 14; TEMP 36.6; O2SAT 98
[2025-02-07] MEDS: IRON SUCROSE COMPLEX 300 MG in SODIUM CHLORIDE 0.9% IV 235 ML 125 MG IVPB (12:35)
[2025-02-07 14:58] VITALS: BP 134/80; PULSE 78; RESP 14
--- NOTE | 2025-02-07 14:59 | PC.NURSE ---
Tolerated #3 of 3 Venofer infusion well. SEE MAR/patient care notes.
== END 2025-02-07 12:20 | disposition home or self-care (01) ==
LOC: CHSLAB 12:21 → CHSTREATRM 12:27
PROVIDERS: PCP Nurse Practitioner Family; Visit Provider Nurse Practitioner Family
DX: D50.9 Iron deficiency anemia, unspecified (principal)
CPT/HCPCS: 96365; 96366; J1756; J7050

== ENCOUNTER 2025-02-21 10:33 | Outpatient (CLI) | payer OTHER, SELFPAY ==
[2025-02-21 10:46] LABS: Hematocrit 47.2 % (40.0-54.0); Hemoglobin 15.1 g/dL (14.0-18.0)
[2025-02-21 11:00] LABS: Iron 42 ug/dL (49-181)
[2025-02-21 11:10] LABS: Percent Iron Saturation 13 % (20-50)
[2025-02-21 14:07] LABS: Alanine Aminotransferase 8 U/L (6-50); Alkaline Phosphatase 85 U/L (38-126); Anion Gap 6 mmol/L (4-12); Aspartate Amino Transferase 27 U/L (17-59); Bilirubin,Total 0.6 mg/dL (0.2-1.3); Blood Urea Nitrogen 21 mg/dL (9-20); Calcium 9.4 mg/dL (8.4-10.2); Carbon Dioxide 25 mmol/L (22-30); Chloride 105 mmol/L (98-107); Estimated Glomerular Filt Rate 54; Glucose 111 mg/dL (65-110); Osmolality Calculated 286 mOsm/kg (285-295); Potassium 4.9 mmol/L (3.4-5.0); Sodium 136 mmol/L (137-145); Total Protein 7.5 g/dL (6.3-8.2)
[2025-02-23 02:53] LABS: Transferrin 252 mg/dL (188-341)
== END 2025-02-21 10:34 | disposition home or self-care (01) ==
LOC: CHSLAB 10:33
PROVIDERS: PCP Nurse Practitioner Family; Visit Provider Nurse Practitioner Family
DX: R79.89 Other specified abnormal findings of blood chemistry (principal); D50.9 Iron deficiency anemia, unspecified
CPT/HCPCS: 36415; 80053; 82728; 83540; 83550; 84466; 85014; 85018

== ENCOUNTER 2025-03-22 00:37 | Day surgery (SDC) | payer OTHER, SELFPAY ==
[2025-03-08 13:30] VITALS: BMI 26.5
[2025-03-22] VITALS (8 sets, daily range): BP systolic 101–144; BP diastolic 64–93; PULSE 80–95; RESP 14–20; TEMP 37.1; O2SAT 97–100
--- NOTE | 2025-03-22 08:51 | WPDANESEPPF ---
Anes - Initial Pre Proc Eval Procedure: Operation Date: 03/22/25 09:45 Proposed Procedures p Esophagogastroduodenoscopy & Colonoscopy - Gibran Lanier MD Date/Time: 03/22/25 08:51 Surgeon: Gibran Lanier MD Pre Op Diagnosis: Iron deficiency anemia, unspecified Patient Data Age: 55 Gender: M Height: 1.78 m Weight: 78.5 kg Last Vital Signs Temp 98.8 F 03/22/25 08:41 Pulse 95 03/22/25 08:41 Resp 18 03/22/25 08:41 BP 131/75 03/22/25 08:41 Pulse Ox 98 03/22/25 08:41 O2 Del Method Room Air 03/22/25 08:41 Allergies Allergy/AdvReac Type Severity Reaction Status Date / Time No Known Allergies Allergy Verified 03/22/25 08:38 Home Medications ?Medication ?Instructions ?Recorded ?Confirmed ?Type magnesium oxide 400 mg PO DAILY 07/01/19 03/22/25 History multivitamin 1 tablet PO DAILY 07/01/19 03/22/25 History melatonin 5 mg capsule 5 mg PO QHS 03/22/24 03/22/25 History mirtazapine 15 mg tablet (Remeron) 15 mg PO QHS #90 tabs 05/27/24 03/22/25 Rx carbidopa 25 mg-levodopa 100 1 tablet PO QID #120 tabs 12/07/24 03/22/25 Rx mg-entacapone 200 mg tablet hydrocodone 5 mg-acetaminophen 325 1 tablet PO Q4H PRN Pain Rated 4-6 12/07/24 03/22/25 Rx mg tablet #20 tabs ondansetron 4 mg disintegrating 4 mg PO Q4H 12 doses #12 tabs 12/07/24 03/08/25 Rx tablet empagliflozin 10 mg tablet 10 mg PO QAM #90 tabs 01/27/25 03/22/25 Rx (Jardiance) lisinopril 10 mg tablet 10 mg PO DAILY #90 tabs 01/28/25 03/22/25 Rx citalopram 10 mg tablet See Rx Instructions .Route 03/03/25 03/22/25 Rx .COMPLEX #90 tabs metoprolol succinate 25 mg See Rx Instructions .Route 03/17/25 Rx tablet,extended release 24 hr .COMPLEX #90 tabs Patient hx anesthesia problems: none Family hx anesthesia problems: none Results Review: All pre-operative results and documents have been reviewed as part of the pre-operative evaluation. [facility] Past Medical History Medical History Constipation Dysphagia BAM (iron deficiency anemia) Diverticulitis Motor fluctuations related to medication use in Parkinson's disease Excessive daytime sleepiness Obstructive sleep apnea Insomnia REM behavioral disorder Parkinson's Disease Hypertension GI bleed Surgical History Surgical History History of inguinal hernia repair Laparoscopic bilateral inguinal hernia repair with mesh, da Etta assisted on 07/02/23 W Family History Family History Father Family history of type 2 diabetes mellitus Other Inguinal hernia Mother , age 70 Pseudobulbar palsy, ministrokes Pseudobulbar palsy Breast cancer Social History Social History Social History: Caffeine-occasionally Smoking status: Never smoker Alcohol intake: never Alcohol use details: RARE Substance use: never Substance use type: does not use Do You Feel Safe in your Home?: Yes Lack of Transportation: No Lack of Food: Never True Current Housing: I Have Housing Concerned About Future Housing: No Difficulty Paying Gas/Electric Bills: No Difficulty Paying for Meds: No Currently Unemployed: No Education: Bachelor's Degree Difficulty w/ Childcare or Family Care: No Living arrangements: with family Occupation/Education: occupation 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 Parkinsons, on 4 x daily meds (took none this am), some dysphagia and anemia. Informed Consent: The patient's anesthetic plan and its attendant risks and benefits were discussed with the patient/family/POA. Questions were solicited and answers provided to the satisfaction of the patient/family/POA.
[2025-03-22] MEDS: LACTATED RINGERS 1,000 ML 150 ML IV CONT (08:53)
[2025-03-22] MEDS: SIMETHICONE ORAL SUSPENSION 20 MG/0.3 ML 30 ML BOTTLE 1.8 ML PO (08:56)
--- NOTE | 2025-03-22 10:29 | SUR.PREOP ---
PT AND FAMILY UPDATED PROCEDURE ROOM RUNNING LATE PAST SCHEDULED PROCEDURE TIME. PT HAS NO CONCERNS.
--- NOTE | 2025-03-22 10:46 | P.HP_ITS ---
H&P: HPI History of Present Illness Date/Time: 03/22/25 10:46 Chief Complaint: Iron deficiency anemia -recent diverticulitis Narrative: patient referred for EGD and colonoscopy for iron deficiency anemia. His last colonoscopy was in 2019 finding hemorrhoids and diverticulosis. Never had an EGD. Review of Systems Review of Systems: All systems reviewed & are unremarkable except as noted in HPI and below PMFSH Past Medical History Medical History Constipation Dysphagia BAM (iron deficiency anemia) Diverticulitis Motor fluctuations related to medication use in Parkinson's disease Excessive daytime sleepiness Obstructive sleep apnea Insomnia REM behavioral disorder Parkinson's Disease Hypertension GI bleed Surgical History Surgical History History of inguinal hernia repair Laparoscopic bilateral inguinal hernia repair with mesh, da Etta assisted on 07/02/23 RHW Family History Family History Father Family history of type 2 diabetes mellitus Other Inguinal hernia Mother , age 70 Pseudobulbar palsy, ministrokes Pseudobulbar palsy Breast cancer Social History Social History Social History: Caffeine-occasionally Smoking status: Never smoker Alcohol intake: never Alcohol use details: RARE Substance use: never Substance use type: does not use Do You Feel Safe in your Home?: Yes Lack of Transportation: No Lack of Food: Never True Current Housing: I Have Housing Concerned About Future Housing: No Difficulty Paying Gas/Electric Bills: No Difficulty Paying for Meds: No Currently Unemployed: No Education: Bachelor's Degree Difficulty w/ Childcare or Family Care: No Living arrangements: with family Occupation/Education: occupation 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 Spiritual care concerns: No Meds Home Medications and Allergies Home Medications ?Medication ?Instructions ?Recorded ?Confirmed ?Type magnesium oxide 400 mg PO DAILY 07/01/19 03/22/25 History multivitamin 1 tablet PO DAILY 07/01/19 03/22/25 History melatonin 5 mg capsule 5 mg PO QHS 03/22/24 03/22/25 History mirtazapine 15 mg tablet (Remeron) 15 mg PO QHS #90 tabs 05/27/24 03/22/25 Rx carbidopa 25 mg-levodopa 100 1 tablet PO QID #120 tabs 12/07/24 03/22/25 Rx mg-entacapone 200 mg tablet hydrocodone 5 mg-acetaminophen 325 1 tablet PO Q4H PRN Pain Rated 4-6 12/07/24 03/22/25 Rx mg tablet #20 tabs ondansetron 4 mg disintegrating 4 mg PO Q4H 12 doses #12 tabs 12/07/24 03/08/25 Rx tablet empagliflozin 10 mg tablet 10 mg PO QAM #90 tabs 01/27/25 03/22/25 Rx (Jardiance) lisinopril 10 mg tablet 10 mg PO DAILY #90 tabs 01/28/25 03/22/25 Rx citalopram 10 mg tablet See Rx Instructions .Route 03/03/25 03/22/25 Rx .COMPLEX #90 tabs metoprolol succinate 25 mg See Rx Instructions .Route 03/17/25 03/22/25 Rx tablet,extended release 24 hr .COMPLEX #90 tabs Allergies Allergy/AdvReac Type Severity Reaction Status Date / Time No Known Allergies Allergy Verified 03/22/25 08:38 Vital Signs Vital Signs - 24 hr 03/22/25 08:41 Temperature 98.8 F Pulse Rate 95 Respiratory Rate 18 Blood Pressure 131/75 Pulse Oximetry 98 Oxygen Delivery Room Air Exam Const: General: cooperative and healthy appearing Resp: Effort & Inspection: normal respiratory effort and able to speak in complete sentences Auscultation: clear to auscultation bilaterally Cardio: Rate: regular rate Rhythm: regular rhythm GI: Inspection: normal to inspection GI Palp: No No hepatosplenomegaly present Auscultation: normal bowel sounds Rectal Exam: deferred Skin: General skin exam: normal color Psych: Appearance: grossly normal Mental Status: mental status grossly normal Assessment and Plan Assessment and plan (1) BAM (iron deficiency anemia): Code(s): D50.9 - Iron deficiency anemia, unspecified Status: Acute Assessment and Plan: The patient is deemed a good candidate for the procedure. Consent signed. Will proceed.
[2025-03-22] MEDS: BENZOCAINE (*SP) 60 ML SPRAY CAN (HURRICAINE) 1 SPRAY MUCOUS MEM (11:02)
--- NOTE | 2025-03-22 11:02 | SUR.OPER ---
EGD end time: 1056, Colonoscopy start time: 1101
--- NOTE | 2025-03-22 11:14 | S_PTH ---
PATIENT: Morteza Storey LOC: [facility] U#:[id number] AGE/SX: 55/M ROOM: RE03/22/[address]: Gibran Lanier MD : 1970 BED: DIS: 03/22/2025 SPEC #: [id number] RECD: 03/22/25 12:43 STATUS: THERESE RECayden #: [id number] LORRAINE: 03/22/25 11:[address]: Gibran Lanier DEPT: [facility] Surgical RECD BY: Miko Parekh ENTERED: 03/22/25 12:44 SP TYPE: Surgical OTHR DR: Brittany Francisco APRN Tissues: A - Gastric Biopsy B - Gastric Biopsy Procedures: Hematoxylin and Eosin Stain Gross and Microscopic Level 4
== END 2025-03-22 12:30 | disposition home or self-care (01) ==
PROVIDERS: PCP Nurse Practitioner Family; Referring Provider Nurse Practitioner Family; Visit Provider Internal Medicine Gastroenterology
PROC: 0DJ08ZZ Inspection of Upper Intestinal Tract, Via Natural or Artificial Opening Endoscopic (ICD-10-PCS; CPT 45378; principal; 2025-03-22 09:45)
DX: D50.9 Iron deficiency anemia, unspecified (principal); K57.30 Diverticulosis of large intestine without perforation or abscess without bleeding; K29.01 Acute gastritis with bleeding; I10 Essential (primary) hypertension; G47.19 Other hypersomnia; G47.33 Obstructive sleep apnea (adult) (pediatric); G47.00 Insomnia, unspecified; G20.A1 Parkinson's disease without dyskinesia, without mention of fluctuations; Z79.891 Long term (current) use of opiate analgesic; Z79.84 Long term (current) use of oral hypoglycemic drugs; Z98.890 Other specified postprocedural states; Z87.19 Personal history of other diseases of the digestive system; Z80.3 Family history of malignant neoplasm of breast
CPT/HCPCS: 43239; 45330; 82948; 88305; J2003; J2704; J7120

== ENCOUNTER 2025-03-24 08:44 | Outpatient (CLI) | payer OTHER, SELFPAY ==
[2025-03-24 09:01] VITALS: BP 106/63; PULSE 80; RESP 14; TEMP 36.6; O2SAT 97; BMI 26.6
[2025-03-24] MEDS: IRON SUCROSE COMPLEX 300 MG in SODIUM CHLORIDE 0.9% IV 235 ML 125 MG IVPB (09:15)
[2025-03-24 11:17] VITALS: BP 113/73; PULSE 78; RESP 14; O2SAT 97
--- NOTE | 2025-03-24 11:19 | PC.NURSE ---
Tolerated Venofer infusion well. SEE MAR/patient care notes.
== END 2025-03-24 08:45 | disposition home or self-care (01) ==
PROVIDERS: PCP Nurse Practitioner Family; Visit Provider Nurse Practitioner Family
DX: D50.9 Iron deficiency anemia, unspecified (principal)
CPT/HCPCS: 96365; 96366; J1756; J7050

== ENCOUNTER 2025-03-31 08:27 | Outpatient (CLI) | payer OTHER, SELFPAY ==
[2025-03-31 08:55] VITALS: BMI 26.6
[2025-03-31 08:59] VITALS: BP 103/70; PULSE 68; RESP 14; TEMP 36.5; O2SAT 99
[2025-03-31] MEDS: IRON SUCROSE COMPLEX 300 MG in SODIUM CHLORIDE 0.9% IV 250 ML 176.67 MG IVPB (09:00)
[2025-03-31 10:48] VITALS: BP 113/75; PULSE 74; RESP 14
--- NOTE | 2025-03-31 10:48 | PC.NURSE ---
Tolerated Venofer infusion well. SEE MAR/patient care notes.
== END 2025-03-31 08:28 | disposition home or self-care (01) ==
PROVIDERS: PCP Nurse Practitioner Family; Visit Provider Nurse Practitioner Family
DX: D50.9 Iron deficiency anemia, unspecified (principal)
CPT/HCPCS: 96365; 96366; J1756; J7050

== ENCOUNTER 2025-04-05 08:49 | Outpatient (CLI) | payer OTHER, SELFPAY ==
[2025-04-05 08:54] VITALS: BMI 26.6
[2025-04-05 09:09] VITALS: BP 111/68; PULSE 88; RESP 14; TEMP 36.5; O2SAT 98
[2025-04-05] MEDS: IRON SUCROSE COMPLEX 300 MG in SODIUM CHLORIDE 0.9% IV 235 ML 125 MG IVPB (09:15)
[2025-04-05 11:17] VITALS: BP 120/69; PULSE 80; RESP 14; O2SAT 98
--- NOTE | 2025-04-05 11:25 | PC.NURSE ---
Tolerated #3 of 3 Venofer infusions well. SEE MAR and patient care notes.
== END 2025-04-05 08:50 | disposition home or self-care (01) ==
PROVIDERS: PCP Nurse Practitioner Family; Visit Provider Nurse Practitioner Family
DX: D50.9 Iron deficiency anemia, unspecified (principal)
CPT/HCPCS: 96365; 96366; J1756; J7050

== ENCOUNTER 2025-04-07 08:22 | Outpatient (CLI) | payer OTHER, SELFPAY ==
[2025-04-07 08:41] LABS: Hematocrit 42.0 % (40.0-54.0); Hemoglobin 13.2 g/dL (14.0-18.0)
[2025-04-07 08:59] LABS: MALB Creatinine Ratio 5.7 mg/g (0-30)
[2025-04-07 09:17] LABS: Iron 64 ug/dL (49-181)
[2025-04-07 09:18] LABS: Alanine Aminotransferase 9 U/L (6-50); Albumin Level 3.7 g/dL (3.5-5.1); Alkaline Phosphatase 92 U/L (38-126); Anion Gap 6 mmol/L (4-12); Aspartate Amino Transferase 27 U/L (17-59); Bilirubin,Total 0.4 mg/dL (0.2-1.3); Blood Urea Nitrogen 17 mg/dL (9-20); Calcium 9.1 mg/dL (8.4-10.2); Carbon Dioxide 25 mmol/L (22-30); Chloride 108 mmol/L (98-107); Estimated Glomerular Filt Rate > 60; Glucose 107 mg/dL (65-110); Osmolality Calculated 289 mOsm/kg (285-295); Potassium 4.5 mmol/L (3.4-5.0); Sodium 139 mmol/L (137-145); Total Protein 6.6 g/dL (6.3-8.2)
[2025-04-07 09:26] LABS: Percent Iron Saturation 25 % (20-50)
== END 2025-04-07 08:23 | disposition home or self-care (01) ==
LOC: CHSLAB 08:22
PROVIDERS: PCP Nurse Practitioner Family; Visit Provider Nurse Practitioner Family
DX: D50.9 Iron deficiency anemia, unspecified (principal); R79.89 Other specified abnormal findings of blood chemistry
CPT/HCPCS: 36415; 80053; 82043; 83540; 83550; 84100; 85014; 85018

== ENCOUNTER 2025-06-11 06:38 | Emergency (ER) | payer OTHER, SELFPAY ==
--- NOTE | ~2025-06-11 | XR_ITS ---
Examination: XR chest 1V portable Clinical History: weakness x3 days Comparison: None Technique: Portable AP Findings: Heart size normal. Lungs clear. A few tiny calcified granulomata. No acute bony abnormality. IMPRESSION: 1. No acute cardiopulmonary findings given portable technique. Reviewed, dictated and finalized at location R.
--- NOTE | ~2025-06-11 | CT_ITS ---
CT HEAD NON-CONTRAST Clinical History: weakness x3 days Comparison: Brain MRI 10/31/2022 Technique: Unenhanced axial images skull base to vertex Coronal, sagittal reformats CT images acquired with automatic exposure control for dose reduction DLP: 681 mGy-cm Findings: Sulci, ventricles: Unremarkable. No intracerebral hemorrhage. No evidence acute territorial infarct. No mass effect, midline shift. Bony calvarium intact. Visualized paranasal sinuses: Clear. Mastoid air cells: Clear. IMPRESSION: 1. No acute intracranial findings. Reviewed, dictated and finalized at location R.
[2025-06-11 06:38] VITALS: BP 133/87; PULSE 80; RESP 16; TEMP 36.7; O2SAT 98
--- NOTE | 2025-06-11 07:24 | ECG_ITS ---
Test Date: 2025-06-11 07:52:10 Measurements Intervals [place] Rate: 86 P: 70 NC: 175 QRS: 47 QRSD: 73 T: 21 QT: 333 QTc: 400 Interpretive Statements SINUS RHYTHM POSSIBLE LEFT ATRIAL ENLARGEMENT BORDERLINE ST-T WAVE ABNORMALITY- INFERIOR LEADS BASELINE ARTIFACT- I, II, III, AVR, AVL, AVF, V1-V6 BORDERLINE ECG Compared to ECG 09/20/2024 09:44:50 NO SIGNIFICANT CHANGE Electronically Signed On 06-11-2025 08:35:08 CDT by Virgilio Benítez D.O.
--- NOTE | 2025-06-11 07:56 | PC.NURSE ---
Covid culture given to lab
--- NOTE | 2025-06-11 07:57 | ED_ITS ---
HPI - Weakness General Chief complaint: Weakness Stated complaint: dizziness Time Seen by Provider: 06/11/25 06:51 Source: patient and family Mode of arrival: wheelchair Limitations: physical limitation History of Present Illness HPI Narrative: this is a 55-year-old male with a history of Parkinson's disease follows with Neurology and is on car be levodopa and has not been following the suggestion of his neurologist and has been adjusting his own medication dosages for his Parkinson's. Presents today in the emergency department with his with some tremors and states that he has weakness. Patient is afebrile with no chest pain no shortness of breath no abdominal pain no nausea vomiting no diarrhea constipation no headaches no neck pain no neurological deficits. Patient also has a history of hypertension. MD Complaint: generalized weakness Onset (ago): unknown ( history of Parkinson's disease and has worsening symptoms shaking tremors) Location: generalized Severity: moderate Related Data Home Medications ?Medication ?Instructions ?Recorded ?Confirmed ?Last Taken ?Type magnesium oxide 400 mg PO DAILY 07/01/1901/2303/21/25 History multivitamin 1 tablet PO DAILY 07/01/19 0 04/05/25 03/21/25 History melatonin 5 mg capsule 5 mg PO QHS 03/22/24 5 03/21/25 History Allergies Allergy/AdvReac Type Severity Reaction Status Date / Time No Known Allergies Allergy Verified 06/11/25 06:52 Review of Systems 2 Review of Systems: All systems reviewed & are unremarkable except as noted in HPI and below PMFSH Past Medical History Medical History Normal esophagogastroduodenoscopy (EGD) Constipation Dysphagia BAM (iron deficiency anemia) Diverticulitis Motor fluctuations related to medication use in Parkinson's disease Excessive daytime sleepiness Obstructive sleep apnea Insomnia REM behavioral disorder Parkinson's Disease Hypertension GI bleed Surgical History Surgical History History of inguinal hernia repair Laparoscopic bilateral inguinal hernia repair with mesh, [place] assisted on 07/02/23 [facility] Family History Family History Father Family history of type 2 diabetes mellitus Other Inguinal hernia Mother , age 70 Pseudobulbar palsy, ministrokes Pseudobulbar palsy Breast cancer Social History Social History Social History: Caffeine-occasionally Smoking status: Never smoker Alcohol intake: never Alcohol use details: RARE Substance use: never Substance use type: does not use Do You Feel Safe in your Home?: Yes Lack of Transportation: No Lack of Food: Never True Current Housing: I Have Housing Concerned About Future Housing: No Difficulty Paying Gas/Electric Bills: No Difficulty Paying for Meds: No Currently Unemployed: No Education: Bachelor's Degree Difficulty w/ Childcare or Family Care: No Living arrangements: with family Occupation/Education: occupation 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 Spiritual care concerns: No Exam 2 Const: General: no acute distress Nutritional Appearance: thin O rientation/consciousness: patient oriented x3 Limitations: physical limitations Neck: Neck: normal visual inspection, no lymphadenopathy and no meningeal signs Chest: Chest palpation & inspection: normal inspection of the chest Resp: Effort & Inspection: normal respiratory effort Auscultation: clear to auscultation bilaterally Cardio: Rate: regular rate Rhythm: regular rhythm GI: GI Palp: Yes Soft to palpation Auscultation: normal bowel sounds Back/Spine/Pelvis: Back: no CVA tenderness Skin: General skin exam: normal color Rashes: no rashes Neuro: General: patient oriented x3, moves all extremities, no meningeal signs and no focal motor deficits Other: Patient with history of Parkinson's disease has generalized tremors Extrem: General: normal to inspection, no clubbing, cyanosis or edema and no pedal edema Course Course Emergency Course: medical decision making narrative: The patient was evaluated by myself from the emergency department. History is obtained from patient and who is independent historian and physical exam performed and witnessed by a nurse Triana. External records Medical, reviewed at this time. EKG performed shows sinus rhythm with a rate of 86. CT scan of the brain with no acute intracranial abnormalities Chest x-ray with no cardiopulmonary abnormalities acutely. COVID influenza RSV performed and reviewed and negative results. Labs performed & WNL and reviewed with patient and family. Patient is at his baseline on repeat exam with no acute distress. Repeat vitals are stable Patient and agree with discussion after shared decision making and agree with discharge. All questions answered to the patient and 's satisfaction. Advised follow-up with Neurology and our primary care the next 3 to 5 days. Vital Signs Vital signs: Vital Signs Temperature 36.7 C 06/11/25 06:38 Pulse Rate 80 06/11/25 06:38 Respiratory Rate 16 06/11/25 06:38 Blood Pressure 133/87 06/11/25 06:38 Pulse Oximetry 98 06/11/25 06:38 Oxygen Delivery Room Air 06/11/25 06:38 Temperature 36.7 C 06/11/25 09:27 Pulse Rate 77 06/11/25 09:27 Respiratory Rate 16 06/11/25 09:27 Blood Pressure 129/80 06/11/25 09:27 Pulse Oximetry 98 06/11/25 09:27 Oxygen Delivery Room Air 06/11/25 09:27 MDM - Weakness Lab Data 06/11/25 07:59 06/11/25 07:59 Labs: Lab Results 06/11/25 06/11/25 06/11/25 Range/Units 07:53 07:59 08:53 WBC 8.2 (4.8-10.8) K/mm3 RBC 4.87 (4.70-6.10) M/mm3 Hgb 14.0 (14.0-18.0) g/dL Hct 43.9 (40.0-54.0) % MCV 90.1 (78.0-102.0) fL MCH 28.7 (27.0-31.0) pg MCHC 31.9 L (32-36) g/dL RDW 13.2 (11.6-14.4) % Plt Count 304 (150-420) K/mm3 MPV 9.6 (8.7-11.0) fl Immature Gran % (Auto) 0.2 H (0.0-0.0) % Neut % (Auto) 73.6 H (50.0-70.0) % Lymph % (Auto) 14.3 L (18.0-42.0) % [place] % (Auto) 10.5 (2.0-11.0) % Eos % (Auto) 1.0 (1.0-6.0) % Baso % (Auto) 0.4 (0.0-1.0) % Lymph # (Auto) 1.17 (1.10-4.50) K/mm3 Alcorn # (Auto) 0.86 (0.10-0.90) K/mm3 Eos # (Auto) 0.08 (0.02-0.50) K/mm3 Baso # (Auto) 0.03 (0.00-0.10) K/mm3 Abs Immat Gran (auto) 0.02 H (0.00-0.00) K/mm3 Absolute Neuts (auto) 6.04 (1.70-7.20) K/mm3 Absolute Nucleated RBC 0.00 (0.00-0.00) K/mm3 Nucleated RBC % 0.0 (0-0.0) % Sodium 139 (137-145) mmol/L Potassium 4.6 (3.4-5.0) mmol/L Chloride 105 (98-107) mmol/L Carbon Dioxide 28 (22-30) mmol/L Anion Gap 6 (4-12) mmol/L BUN 19 (9-20) mg/dL Creatinine 1.24 (0.7-1.3) mg/dL Estim Creat Clear Calc Not Reportable Estimated GFR 60 (59 - ) Glucose 107 (65-110) mg/dL Calculated Osmolality 290 (285-295) mOsm/kg Calcium 9.9 (8.4-10.2) mg/dL Total Bilirubin 0.8 (0.2-1.3) mg/dL AST 28 (17-59) U/L ALT 9 (6-50) U/L Alkaline Phosphatase 76 (38-126) U/L Total Protein 8.8 H (6.3-8.2) g/dL Albumin 4.3 (3.5-5.1) g/dL Urine Color Yellow (Yellow) Urine Appearance Clear (Clear) Urine pH 6.0 (5.0-8.0) Ur Specific [place] 1.020 (1.010-1.020) Urine Protein Negative (Negative) Urine Glucose (UA) Negative (Negative) Urine Ketones Trace H (Negative) Ur Blood (Man) Negative (Negative) Urine Nitrate Negative (Negative) Urine Bilirubin Negative (Negative) Urine Urobilinogen 0.2 (0.2-1.0) mg/dL Leukocyte Esterase Rfl Negative (Negative) BLANCA/UL Influenza A (RT-PCR) Negative (Negative) Influenza B (RT-PCR) Negative (Negative) RSV (RT-PCR) Negative (Negative) SARS-CoV-2 RNA (RT-PCR) Negative (Negative) Discharge Plan Discharge Clinical Impression: Parkinson's disease Patient Disposition: Home Condition: Stable Instructions: Antibiotic Form, Parkinson Disease (ED) Additional Instructions: advised to take medication as prescribed per Neurology and a follow-up within next 3 to 5 days further evaluation and treatment. Patient Language: Georgian Prescriptions: No Action melatonin 5 mg capsule 5 mg PO QHS trazodone 50 mg tablet 50 mg PO QHS PRN (Reason: insomnia) Qty: 90 1RF ozuuelycl-epafhklc-wkqklbowzk 25-100-200 mg tablet 1 tablet PO TID Qty: 270 2RF multivitamin Tablet 1 tablet PO DAILY magnesium oxide 400 mg magnesium Tablet 400 mg PO DAILY Jardiance 10 mg tablet 10 mg PO QAM Qty: 90 0RF citalopram 10 mg tablet See Rx Instructions .ROUTE .COMPLEX Qty: 90 2RF Dose Instruction: TAKE 1 TABLET BY MOUTH EVERY DAY Rx Instructions: TAKE 1 TABLET BY MOUTH EVERY DAY metoprolol succinate 25 mg tablet extended release 24 hr See Rx Instructions .ROUTE .COMPLEX Qty: 90 0RF Dose Instruction: TAKE 1 TABLET BY MOUTH EVERY DAY Rx Instructions: TAKE 1 TABLET BY MOUTH EVERY DAY lisinopril 10 mg tablet See Rx Instructions .ROUTE .COMPLEX Qty: 90 3RF Dose Instruction: TAKE 1 TABLET BY MOUTH EVERY DAY Rx Instructions: TAKE 1 TABLET BY MOUTH EVERY DAY Follow-up/Referrals: Katharine Turk NP [Primary Care Provider, [facility]] Time of Disposition: 09:18
[2025-06-11 08:04] LABS: Hematocrit 43.9 % (40.0-54.0); Hemoglobin 14.0 g/dL (14.0-18.0); Immature Granulocyte Percent A 0.2 % (0.0-0.0); Lymphocytes Absolute Auto 1.17 K/mm3 (1.10-4.50); Mean Corpuscular HGB Conc 31.9 g/dL (32-36); Mean Corpuscular Hemoglobin 28.7 pg (27.0-31.0); Mean Corpuscular Volume 90.1 fL (78.0-102.0); Nucleated Red Blood Cells Absolute Auto 0.00 K/mm3 (0.00-0.00); Nucleated Red Blood Cells Perc 0.0 % (0-0.0); Platelet Count Result 304 K/mm3 (150-420); Red Blood Count 4.87 M/mm3 (4.70-6.10); White Blood Count 8.2 K/mm3 (4.8-10.8)
[2025-06-11] MEDS: SODIUM CHLORIDE 0.9% IV 1,000 ML 999 ML IV CONT (08:07)
[2025-06-11 08:16] LABS: Alanine Aminotransferase 9 U/L (6-50); Albumin Level 4.3 g/dL (3.5-5.1); Alkaline Phosphatase 76 U/L (38-126); Anion Gap 6 mmol/L (4-12); Aspartate Amino Transferase 28 U/L (17-59); Bilirubin,Total 0.8 mg/dL (0.2-1.3); Blood Urea Nitrogen 19 mg/dL (9-20); Calcium 9.9 mg/dL (8.4-10.2); Carbon Dioxide 28 mmol/L (22-30); Chloride 105 mmol/L (98-107); Estimated Glomerular Filt Rate 60; Glucose 107 mg/dL (65-110); Osmolality Calculated 290 mOsm/kg (285-295); Potassium 4.6 mmol/L (3.4-5.0); Sodium 139 mmol/L (137-145); Total Protein 8.8 g/dL (6.3-8.2)
[2025-06-11 08:42] LABS: Influenza A QL RT-PCR Negative (Negative); Influenza B QL RT-PCR Negative (Negative); RSV RNA, RT-PCR Negative (Negative); SARS-CoV-2 RNA PCR Negative (Negative)
--- NOTE | 2025-06-11 08:46 | PC.NURSE ---
pt standing , attempting to urinate. unable at this time. ambulated to bathroom to sit .
[2025-06-11 09:10] LABS: Add Urine Microscopic? NO; Appearance Urine Clear (Clear); Glucose Urine UA Negative (Negative); Leukocyte Esterase Ur Negative LEU/UL (Negative); Nitrate Urine Negative (Negative); Specific Grav Ur 1.020 (1.010-1.020)
[2025-06-11 09:27] VITALS: BP 129/80; PULSE 77; RESP 16; TEMP 36.7; O2SAT 98
--- NOTE | 2025-06-14 13:39 | PC.NURSE ---
blood, preliminary, no growth
--- NOTE | 2025-06-18 13:27 | PC.NURSE ---
final blood cultures x2 reviewed. no growth in 5 days. no change in plan of care
== END 2025-06-11 09:35 | disposition home or self-care (01) ==
PROVIDERS: Emergency Provider Emergency Medicine; PCP Nurse Practitioner Family
DX: G20.A1 Parkinson's disease without dyskinesia, without mention of fluctuations (principal); I10 Essential (primary) hypertension; Z20.822 Contact with and (suspected) exposure to COVID-19
CPT/HCPCS: 36415; 70450; 71045; 80053; 81003; 85025; 87040; 87637; 93005; 96360; 99284; J7030